=== PATIENT | female | born 1965 | race Asian ===

== ENCOUNTER 2021-07-12 10:09 | Outpatient (REF) | payer OTHER, SELFPAY ==
--- NOTE | ~2021-07-12 | US_ITS ---
EXAMINATION: MM DIAGNOSTIC DIGITAL BREAST TOMOSYNTHESIS, BILATERAL US DIAGNOSTIC ULTRASOUND BREAST, RIGHT CLINICAL INFORMATION: 56-year-old with palpable concern posterior outer right breast. Prior mammography 2015 performed in the [facility] and unavailable. Prior history benign right breast surgery medial side in [facility]. The lifetime risk of breast cancer based on the Tyrer-Cuzick Model is 7%. COMPARISON: None. TECHNIQUE: Digital breast tomosynthesis is performed in both the craniocaudal and mediolateral oblique views along with computer-aided detection (CAD). Synthesized 2D images are generated from the tomosynthesis. Additional views are obtained: Left CC, spot right CC, spot right MLO. Ultrasound right breast is targeted to the upper and outer quadrant and right axilla. Grayscale imaging and color Doppler are performed without and with harmonics. FINDINGS: There are scattered areas of fibroglandular density (ACR BI-RADS breast composition Category b). There is fine fibronodular parenchymal pattern with scattered small bilateral smooth nodularity on tomography. Left breast shows no significant mass and no architectural abnormality. Neither breast shows abnormal calcifications. The bilateral axilla and skin contours are unremarkable. Right breast has smooth oval mass mid upper outer quadrant measuring approximately 1.2 x 0.8 x 1.0 cm. In addition, there is a spiculated lesion posterior 9:00 position measuring just under 1 cm. Ultrasound right breast demonstrates suspicious irregular hypoechoic mass 9:00 position 6 cm from nipple measuring approximately 1.0 x 0.9 cm. There is scant posterior shadowing. Additional imaging right axilla demonstrates no lymphadenopathy. Ultrasound right breast also demonstrates a simple cyst 10:00 position 6 cm from nipple measuring 1.2 x 0.9 x 0.6 cm with a small adjacent satellite cyst measuring under 5 mm. Results are discussed with the patient at time of visit. Ultrasound-guided core biopsy of the irregular hypoechoic mass 9:00 position is recommended. Results and recommendation called to medical transcriber (Jenn) for DALTON Colbert on 07/12/2021 US/US breast RT limited IMPRESSION: Right: -Suspicious spiculated lesion hypoechoic on ultrasound 9:00 position. -Incidental simple cysts upper outer quadrant. -No adenopathy. Left: -No mammographic evidence of malignancy. ASSESSMENT: BI-RADS 4: Suspicious (subcategory 4C: High suspicion for malignancy) RECOMMENDATION: Ultrasound-guided core biopsy right breast mass. This patient's information was entered into a reminder system with a target due date for their next mammogram.
== END 2021-07-12 10:10 | disposition home or self-care (01) ==
LOC: HO.MAMMO 10:09
PROVIDERS: Visit Provider Emergency Medicine
DX: N63.13 Unspecified lump in the right breast, lower outer quadrant (principal)
CPT/HCPCS: 76642; 77062; 77066

== ENCOUNTER 2021-07-20 09:48 | Outpatient (REF) | payer OTHER, SELFPAY ==
--- NOTE | ~2021-07-20 | MM_ITS ---
EXAMINATION: ULTRASOUND GUIDED CORE BIOPSY BREAST, RIGHT POST PROCEDURE DIGITAL MAMMOGRAM, RIGHT CLINICAL INFORMATION: Suspicious spiculated lesion posterior 9:00 right breast. COMPARISON: Mammography 07/12/2021, targeted right breast ultrasound 07/12/2021. FINDINGS: Proper informed consent is obtained from the patient after discussion of the procedure, potential risks and complications, and alternatives. Patient was given an opportunity for questions. The patient appeared to understand. The patient consented to the procedure and signed the consent form. GUIDANCE: Ultrasound-guided; aseptic technique. LESION: Irregular 1 cm hypoechoic mass 9:00 position. APPROACH: Lateral medial. ANESTHESIA: 15 mL carbonated 1% lidocaine. DERMATOTOMY: Single skin azra dermatotomy performed. NEEDLE: 14-gauge Achieve core biopsy device with 13.5-gauge co-axial guide needle. CORES: 5. CLIP: HydroMARK; shape: butterfly. POST PROCEDURE UNILATERAL DIGITAL MAMMOGRAM: The post biopsy mammogram is performed in separate room using separate digital mammography equipment from the biopsy procedure. CC and ML views are obtained. There are scattered areas of fibroglandular density (breast composition category: b). The clip marker is in position corresponding to recent mammographic finding. There is some increased attenuation in the breast corresponding to combination of small hematoma in density from anesthesia. Home instructions reviewed with the patient. Final pathology results are pending. MM/MM diagnostic mammo unilat RT IMPRESSION: 1. Status post ultrasound-guided core biopsy right breast. 2. Clip placed: HydroMARK; shape: butterfly. 3. Pathology pending. An addendum report will be issued.
[2021-07-20] MEDS: Lidocaine HCl 1 % 20 ML VIAL 15 ML SUBCUT (11:17)
[2021-07-20] MEDS: Sodium Bicarbonate 8.4% 50 MEQ/50 ML VIAL SUBCUT (11:18)
== END 2021-07-20 09:49 | disposition home or self-care (01) ==
LOC: HO.MAMMO 09:48
PROVIDERS: PCP Internal Medicine; Visit Provider Emergency Medicine
DX: N63.15 Unspecified lump in the right breast, overlapping quadrants (principal)
CPT/HCPCS: 19083; 77062; 77065; 88305; 88342; 88360; 99202

== ENCOUNTER → 2021-07-27 10:01 | Outpatient (BNVA) | payer OTHER, SELFPAY | PROVIDERS: PCP Internal Medicine; Referring Provider Internal Medicine; Visit Provider Surgery | DX: C50.811 Malignant neoplasm of overlapping sites of right female breast (principal) | CPT/HCPCS: 99212 ==

== ENCOUNTER 2021-07-30 09:47 | Emergency (ER) | payer OTHER, SELFPAY ==
[2021-07-30 10:13] VITALS: BP 156/91; PULSE 91; RESP 18; TEMP 36.8; O2SAT 97
[2021-07-30 11:08] VITALS: BP 156/91; PULSE 91; RESP 18; TEMP 36.8; O2SAT 97; BMI 23.8
--- NOTE | 2021-07-30 11:55 | ED.GENADULT ---
HPI - General Adult General Chief complaint: General Medical Stated complaint: breast pain Time Seen by Provider: 07/30/21 11:25 History of Present Illness HPI narrative: Patient complains of right breast pain She was diagnosed last week with a cancer of the right breast and was seen by [facility] and informed of this diagnosis They plan to go to [facility] treatment After the biopsy there is increased pain and she feels like the mass has enlarged but she denies fever discharge redness Related Data Home Medications Medication Instructions Recorded Confirmed budesonide-formoterol HFA 160 1 puff INHALATION BID 07/20/21 07/20/21 mcg-4.5 mcg/actuation aerosol inhaler (Symbicort) nitrofurantoin macrocrystal 100 mg 100 mg PO BID 07/20/21 07/20/21 capsule Previous Rx's Medication Instructions Recorded acetaminophen 500 mg tablet 1,000 mg PO QID PRN #30 tab 07/30/21 ibuprofen 600 mg tablet 600 mg PO Q6H PRN #20 tab 07/30/21 oxycodone 5 mg tablet 5 mg PO Q6H PRN #20 tab 07/30/21 Allergies Allergy/AdvReac Type Severity Reaction Status Date / Time No Known Allergies Allergy Verified 07/27/21 10:10 Review of Systems Review of Systems: Positive for right breast pain and mass Negative no fever no chills no dizziness or weakness no headache no neck pain no shortness of breath no abdominal pain no nausea or vomiting Yes all other systems are reviewed and are negative PMFSH Past Medical History Source: nursing notes reviewed Medical History Invasive ductal carcinoma of breast Mass of right breast on mammogram Uses nebulizer and inhaler at home Social History Social History Advance Directives: No Advance Directives Information Provided: Yes Physical Exam ED Vital Signs: Vital Signs - 24 hr 07/30/21 10:13 07/30/21 11:08 Temperature 98.2 F 98.2 F Pulse Rate 91 91 Respiratory Rate 18 18 Blood Pressure 156/91 H 156/91 H Pulse Oximetry 97 97 BMI result Body Mass Index 23.8 General appearance is no acute distress , and cooperative Head is normocephalic atraumatic Neck is supple Respiratory no distress Breast exam the right breast had a tender hard mass on the right outer aspect of the breast, there was no redness no warmth no discharge no wound no evidence of abscess no evidence of cellulitis extremities full range of motion x4 Skin no rash Course Course Course Narrative: Case was discussed with Dr. Calvert surgeon who had seen her in clinic after biopsy, he was in the ER and he actually saw the patient her year and reassured her there was no infection, it is likely a hematoma which he said is common after biopsy and the patient plans to follow at [facility] but Dr. Ford is media clear that until that is established she is very welcome as is patient any will see her next week Discharge Plan Discharge Clinical Impression: Invasive ductal carcinoma of breast, Breast pain, right Patient Disposition: Home, Self-Care Additional Instructions: Follow closely with Dr. Calvert is and [facility] to form a plan of treatment At this time there is no sign of an abscess or skin infection I spoke with Dr. Lin issue said likely the pain and enlargement of the mass are from hematoma formation after the biopsy Follow with Dr. Calvert in his office Return any time for any worse condition or concern Use pain medication as needed and apply warm compresses Prescriptions: New oxycodone 5 mg tablet 5 mg PO Q6H PRN (Reason: pain) Qty: 20 0RF Rx Instructions: Narcotic may cause drowsiness, no driving for 6 hours after taking acetaminophen 500 mg tablet 1,000 mg PO QID PRN (Reason: pain) Qty: 30 0RF ibuprofen 600 mg tablet 600 mg PO Q6H PRN (Reason: pain) Qty: 20 0RF No Action nitrofurantoin macrocrystal 100 mg capsule 100 mg PO BID 0RF Rx Instructions: must administer with a meal/food budesonide-formoterol [Symbicort] 160-4.5 mcg/actuation HFA aerosol inhaler 1 puff inhalation BID 0RF Interventions: ED Discharge Assessment Last Done: 07/30/21 12:09 Discharge Date/Time: 07/30/21 12:10
== END 2021-07-30 12:10 | disposition home or self-care (01) ==
PROVIDERS: Emergency Provider Emergency Medicine; PCP Internal Medicine
DX: N64.4 Mastodynia (principal); C50.911 Malignant neoplasm of unspecified site of right female breast; Z79.899 Other long term (current) drug therapy
CPT/HCPCS: 99281; 99283

== ENCOUNTER → 2021-11-29 15:41 | Outpatient (BNVA) | payer MEDICARE, OTHER, SELFPAY | PROVIDERS: PCP Internal Medicine; Referring Provider Internal Medicine; Visit Provider Nurse Practitioner Family | DX: Z12.11 Encounter for screening for malignant neoplasm of colon (principal) | CPT/HCPCS: 99202 ==

== ENCOUNTER 2021-12-15 14:39 | Emergency (ER) | payer MEDICARE, OTHER, SELFPAY ==
--- NOTE | ~2021-12-15 | XR_ITS ---
EXAMINATION: XR CHEST CLINICAL INFORMATION: Cough COMPARISON: None TECHNIQUE: Frontal view of the chest was obtained. FINDINGS: The cardiac silhouette does not appear enlarged. There is volume loss to the upper lobes and bilateral upper lobe scarring, bronchial wall thickening and bronchiectasis, left greater than right. This may represent old infection, including old TB. Differential would include ankylosing spondylitis, sarcoid and pneumoconiosis. The lungs are otherwise clear. There is no pleural effusion or pneumothorax. There is curvature of the lower thoracic and upper lumbar spine to the left.. XR/XR chest 1V IMPRESSION: Bilateral upper lobe volume loss, scarring, bronchiectasis and bronchial wall thickening. This probably represents old infection, including possible TB. Clinical correlation recommended. Comparison with old outside exams would be helpful.
[2021-12-15 16:07] VITALS: BP 168/111; PULSE 80; RESP 18; TEMP 36.6; O2SAT 98; BMI 25.2
--- NOTE | 2021-12-15 16:12 | ECG_ITS ---
Test Reason : HYPERTENSION Blood Pressure : / mmHG Vent. Rate : 087 BPM Atrial Rate : 087 BPM P-R Int : 184 ms QRS Dur : 092 ms QT Int : 380 ms P-R-T Axes : 057 006 074 degrees QTc Int : 457 ms Normal sinus rhythm Possible Left atrial enlargement RSR' or QR pattern in V1 suggests right ventricular conduction delay Borderline ECG No previous ECGs available Referred By: Generic ED Physician Electronically Signed By:EMMANUELLE MARIE MD
--- NOTE | 2021-12-15 16:16 | PC.NURSE ---
charge notified of pts medical history
[2021-12-15 16:25] LABS: MANUAL DIFF FLAG NO
[2021-12-15 16:30] LABS: Basophils Absolute Auto 0.1 X10*3/uL (0.0-0.2); Basophils Percent Auto 0.8 % (0-2); Eosinophils Absolute Auto 0.9 X10*3/uL (0.0-0.4); Eosinophils Percent Auto 13.9 % (0-4); Hematocrit 43.7 % (37.0-47.0); Hemoglobin 14.4 g/dl (12.0-16.0); Imm Gran Abs Auto 0.02 X10*3/uL (0.00-0.03); Imm Gran Pct Auto 0.3 % (0.0-0.4); Lymphocytes Absolute Auto 1.5 X10*3/uL (1.2-4.9); Mean Corpuscular Hemoglobin 28.3 pg (27.0-33.0); Mean Corpuscular Volume 85.9 fL (80.0-98.0); Mean Platelet Volume 9.7 fL (9.4-12.3); Platelet Count 191 X10*3/uL (160-400); Red Blood Count 5.09 X10*6/uL (4.20-5.50); Red Cell Distribution Width 11.8 % (11.0-16.0); White Blood Count 6.4 X10*3/uL (4.8-10.8)
[2021-12-15 16:42] LABS: COVID-19 Test Negative (Negative)
[2021-12-15 16:44] LABS: Anion Gap 17 (12-20); Blood Urea Nitrogen 12 mg/dL (9-16); Calcium 9.3 mg/dL (8.4-10.2); Carbon Dioxide 24 mmol/L (22-29); Chloride 102 mmol/L (96-108); Creatinine Clr Calc Pharmacy 84.7; Estimated Glomerular Filt Rate > 60; Glucose Random 83 mg/dL (60-115); Sodium 139 mmol/L (135-145)
[2021-12-15 16:50] LABS: Troponin-I High Sensitivity < 3.5 ng/L (<3.5-17.0)
== END 2021-12-15 20:10 | disposition left against medical advice (07) ==
PROVIDERS: Emergency Provider Emergency Medicine; PCP Internal Medicine
DX: R04.2 Hemoptysis (principal); R05.9 Cough, unspecified; I10 Essential (primary) hypertension; Z20.822 Contact with and (suspected) exposure to COVID-19; Z79.899 Other long term (current) drug therapy
CPT/HCPCS: 36415; 71045; 80048; 84484; 85025; 87635; 93005; 99283; 99284

== ENCOUNTER → 2022-01-03 09:06 | Outpatient (BNVA) | payer OTHER, SELFPAY | PROVIDERS: PCP Internal Medicine; Visit Provider Internal Medicine Pulmonary Disease | DX: R93.89 Abnormal findings on diagnostic imaging of other specified body structures (principal); R04.2 Hemoptysis | CPT/HCPCS: 99202 ==

== ENCOUNTER 2022-01-22 10:28 | Outpatient (REF) | payer MEDICARE, SELFPAY ==
[2022-01-22 12:50] LABS: Blood Urea Nitrogen 14 mg/dL (9-16); Estimated Glomerular Filt Rate > 60
[2022-01-24 19:21] LABS: TS Negative Control Passed; TS Panel A 0; TS Panel B 0; TS Positive Control Passed; TSpotTB Negative (Negative)
== END 2022-01-22 10:29 | disposition home or self-care (01) ==
LOC: HO.LAB 10:28
PROVIDERS: PCP Internal Medicine; Visit Provider Internal Medicine Pulmonary Disease
DX: Z11.1 Encounter for screening for respiratory tuberculosis (principal); R93.89 Abnormal findings on diagnostic imaging of other specified body structures
CPT/HCPCS: 36415; 82565; 84520; 86481

== ENCOUNTER 2022-01-30 09:44 | Outpatient (REF) | payer OTHER, SELFPAY ==
--- NOTE | ~2022-01-30 | CT_ITS ---
EXAMINATION: CT CHEST WITH CONTRAST CLINICAL INFORMATION: Abnormal findings on chest x-ray. COMPARISON: Chest x-ray 12/15/2021. TECHNIQUE: Multidetector volumetric CT imaging of the chest was obtained after the administration of 50 mL of Omnipaque 350 intravenous contrast without immediate adverse reactions. Axial MIP volume rendering provided. Sagittal and coronal reformatted images were obtained. This CT examination was performed using dose optimization techniques as appropriate, variously including the following: *Automated exposure control *Adjustment of mA and/or kV according to patient size (this includes techniques or standardized protocols for targeted exams where dose is matched to indication/reason for exam; i.e. extremities or head) *Use of iterative reconstruction technique DLP: 122 mGy-cm FINDINGS: GUNNER'S MATE M: Hyperinflated lungs with increased bilateral upper lobe scarring and pleural thickening. LUNGS: The lungs are hyperinflated with extensive bilateral pleural thickening with calcification and bilateral apical scarring as well as moderate parenchymal cystic changes in the left upper lobe. There is a 4 mm nodule in right upper lobe, axial image 78/6 with several small nodular changes in the right upper lobe, axial image 53/10. There are several punctate calcifications in both upper lobes, greater on the left. There is a 5 mm calcified nodule in the right upper lobe, axial image 96/6. There is a 2 mm nodule in the left upper lobe posteriorly, axial image 100/ 10. There is a parenchymal opacity in the right upper lobe anterior segment, image 66/10-75/10 and subcentimeter nodules in the left lower lobe, axial image 48/4. Reticular nodular changes are also seen in left lower lobe posterior basal segment. MEDIASTINUM: The thyroid lobes are symmetric and normal. The central trachea and the bronchi are widely patent. Heart size and the great vessels are normal caliber. There are no coronary artery calcifications present. No abnormal size mediastinal or hilar lymph nodes seen. PLEURA: There is no pleural effusion. No pleural mass or thickening. AXILLA: There are right axillary lorena likely from lymph node dissection. No abnormal size lymph nodes seen. 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 It measures 1.4 x 1.4 cm on sagittal image 14/9. There is a dense, deep right breast soft tissue density with scattered punctate calcifications, old surgical scar. No nodular skin thickening seen. UPPER ABDOMEN: Visualized liver, spleen, pancreas and bilateral adrenal glands are unremarkable. OSSEOUS STRUCTURES: No gross lytic or sclerotic process seen. CT/CT chest w IV con IMPRESSION: 1. Hyperinflated lungs with extensive bilateral upper lobe scarring, pleural thickening with calcification. There are multiple calcified and noncalcified pulmonary nodules as described above. 2. No abnormal mediastinal or axillary lymphadenopathy seen. 3. 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 4. Post-surgical changes in the right breast with a soft tissue density, with punctate calcifications, likely old scar. Correlate with clinical exam. 5. No abnormal mediastinal or axillary lymph nodes seen. 6. No pleural effusion or pericardial effusion. No bony abnormality seen. No lytic or sclerotic process seen in the visualized bones. 7. The recommendations do not apply to lung cancer screening, patients with immunosuppression or patients with known primary cancer. Fleischner guidelines were followed.
[2022-01-30] MEDS: iohexoL 350 MG/ML 100 ML INFUS..BTL IV (10:34)
== END 2022-01-30 09:45 | disposition home or self-care (01) ==
LOC: HO.CT 09:44
PROVIDERS: PCP Internal Medicine; Visit Provider Internal Medicine Pulmonary Disease
DX: R93.89 Abnormal findings on diagnostic imaging of other specified body structures (principal)
CPT/HCPCS: 71260; Q9967

== ENCOUNTER 2022-02-06 07:42 | Outpatient (REF) | payer OTHER, SELFPAY | END 2022-02-06 07:43 | disposition home or self-care (01) | LOC: HO.RESP 07:42 | PROVIDERS: PCP Internal Medicine; Visit Provider Internal Medicine Pulmonary Disease | DX: Z13.89 Encounter for screening for other disorder (principal) ==

== ENCOUNTER 2022-02-20 10:18 | Outpatient (REF) | payer OTHER, SELFPAY ==
--- NOTE | ~2022-02-20 | CT_ITS ---
EXAMINATION: CT ANGIOGRAM CHEST CLINICAL INFORMATION: Hemoptysis COMPARISON: Chest CT on 01/30/2022 TECHNIQUE: Multiple axial images were obtained through the chest after the administration of 70 mL of Omnipaque 350 intravenous contrast. Extensive vascular post-processing including two-dimensional and three-dimensional reformatted images were created and reviewed on an independent workstation. This CT examination was performed using dose optimization techniques as appropriate, variously including the following: *Automated exposure control *Adjustment of mA and/or kV according to patient size (this includes techniques or standardized protocols for targeted exams where dose is matched to indication/reason for exam; i.e. extremities or head) *Use of iterative reconstruction technique DLP: 130 mGy-cm FINDINGS: Heart/Aorta: The heart is globally normal in size. The coronary arteries arise from the expected coronary sinuses; there is no anomaly of coronary arterial origin. The thoracic aorta is normal in course and caliber. There is no evidence of aortic dissection, intramural hematoma, or atherosclerotic penetrating ulcer. Aortic arch anatomy is conventional. Other Cardiovascular: The main pulmonary artery is normal in caliber. The well opacified portions of the pulmonary arterial system are patent. There is no pericardial effusion or pericardial thickening. Mediastinum/Jonelle: There are no pathologically enlarged mediastinal or hilar lymph nodes. Pleura: The pleural surfaces are normal bilaterally. There is no pleural effusion. There is no pneumothorax. Lungs: Volume loss in the left. There is severe bronchiectasis of the posterior left upper lobe and to a lesser extent the posterior right upper lobe. There are additional scattered bilateral areas of tree-in-bud opacities, groundglass attenuation, and reticulation. There is diffuse bilateral mild emphysematous changes. Airways: The central airways are patent. The peripheral airways are normal. There is no bronchiectasis. Upper Abdomen: The incompletely imaged upper abdomen is unremarkable. Musculoskeletal: There is no aggressive osseous lesion. The structures of the chest wall, including the bones, are normal for age. CT/CT angio chest aorta IMPRESSION: 1. Severe bronchiectasis of the posterior left upper lobe and to a lesser extent the posterior right upper lobe. 2. Scattered bilateral areas of tree-in-bud opacities, groundglass attenuation, and reticulation. Hemoptysis is likely secondary to inflammatory changes. Consider bronchoscopy if not previously performed for further evaluation.
[2022-02-20] MEDS: iohexoL 350 MG/ML 100 ML INFUS..BTL IV (10:57)
== END 2022-02-20 10:19 | disposition home or self-care (01) ==
LOC: HO.CT 10:18
PROVIDERS: PCP Internal Medicine; Visit Provider Internal Medicine Pulmonary Disease
DX: R04.2 Hemoptysis (principal); R93.89 Abnormal findings on diagnostic imaging of other specified body structures
CPT/HCPCS: 71275; Q9967

== ENCOUNTER 2022-03-13 11:09 | Outpatient (REF) | payer OTHER, SELFPAY ==
[2022-03-14 08:14] LABS: ~Hepatitis B Surface Antibody NONREACTIVE (Nonreactive)
[2022-03-15 04:17] LABS: Rubella IgG Antibody 4.47 Index
[2022-03-15 04:23] LABS: Rubeola IgG (Measles) >300.00 AU/mL
== END 2022-03-13 11:10 | disposition home or self-care (01) ==
LOC: HO.LAB 11:09
PROVIDERS: PCP Physician Assistant; Visit Provider Internal Medicine Infectious Disease
DX: Z00.00 Encounter for general adult medical examination without abnormal findings (principal)
CPT/HCPCS: 36415; 86706; 86735; 86762; 86765; 86787

== ENCOUNTER 2022-03-27 10:28 | Outpatient (REF) | payer OTHER, SELFPAY ==
[2022-03-27 11:29] LABS: MANUAL DIFF FLAG NO
[2022-03-27 12:00] LABS: Basophils Absolute Auto 0.1 X10*3/uL (0.0-0.2); Basophils Percent Auto 0.9 % (0-2); Eosinophils Absolute Auto 0.7 X10*3/uL (0.0-0.4); Hemoglobin 14.4 g/dl (12.0-16.0); Imm Gran Abs Auto 0.02 X10*3/uL (0.00-0.03); Imm Gran Pct Auto 0.3 % (0.0-0.4); Lymphocytes Absolute Auto 2.1 X10*3/uL (1.2-4.9); Lymphocytes Percent Auto 30.8 % (20-40); Mean Corpuscular HGB Conc 32.7 g/dl (31.0-35.0); Mean Corpuscular Hemoglobin 28.6 pg (27.0-33.0); Mean Corpuscular Volume 87.5 fL (80.0-98.0); Mean Platelet Volume 10.1 fL (9.4-12.3); Monocytes Absolute Auto 0.6 X10*3/uL (0.1-1.2); Monocytes Percent Auto 8.5 % (2-11); Neutrophils Absolute Auto 3.3 x10*3/uL (2.0-8.3); Neutrophils Percent Auto 49.5 % (45-73); Platelet Count 241 X10*3/uL (160-400); Red Blood Count 5.03 X10*6/uL (4.20-5.50); White Blood Count 6.7 X10*3/uL (4.8-10.8)
== END 2022-03-27 10:29 | disposition home or self-care (01) ==
LOC: HO.LAB 10:28
PROVIDERS: PCP Physician Assistant; Visit Provider Internal Medicine Pulmonary Disease
DX: Z91.09 Other allergy status, other than to drugs and biological substances (principal); R93.89 Abnormal findings on diagnostic imaging of other specified body structures; J47.9 Bronchiectasis, uncomplicated; Z86.11 Personal history of tuberculosis
CPT/HCPCS: 36415; 82785; 85025; 86003

== ENCOUNTER → 2022-04-19 11:00 | Outpatient (BNVA) | payer OTHER, SELFPAY | PROVIDERS: PCP Registered Nurse; Visit Provider Internal Medicine Pulmonary Disease | DX: Z91.09 Other allergy status, other than to drugs and biological substances (principal) ==

== ENCOUNTER 2022-05-17 10:55 | Outpatient (REF) | payer OTHER, SELFPAY | END 2022-05-17 10:56 | disposition home or self-care (01) | LOC: HO.MDS 10:55 | PROVIDERS: Visit Provider Internal Medicine Pulmonary Disease | DX: J45.50 Severe persistent asthma, uncomplicated (principal); J82.83 Eosinophilic asthma | CPT/HCPCS: 96372; J2182 ==

== ENCOUNTER 2022-06-14 09:50 | Outpatient (REF) | payer OTHER, SELFPAY | END 2022-06-14 09:51 | disposition home or self-care (01) | LOC: HO.MDS 09:50 | PROVIDERS: Visit Provider Internal Medicine Pulmonary Disease | DX: J45.50 Severe persistent asthma, uncomplicated (principal); J82.83 Eosinophilic asthma | CPT/HCPCS: 96372; J2182 ==

== ENCOUNTER → 2022-07-10 10:55 | Outpatient (BNVA) | payer OTHER, SELFPAY | PROVIDERS: PCP Registered Nurse; Visit Provider Internal Medicine Pulmonary Disease ==

== ENCOUNTER 2022-07-12 09:54 | Outpatient (REF) | payer OTHER, SELFPAY | END 2022-07-12 09:55 | disposition home or self-care (01) | LOC: HO.MDS 09:54 | PROVIDERS: Visit Provider Internal Medicine Pulmonary Disease | DX: J45.50 Severe persistent asthma, uncomplicated (principal) | CPT/HCPCS: 96372; J2182 ==

== ENCOUNTER 2022-12-26 16:19 | Outpatient (REF) | payer OTHER, SELFPAY ==
[2022-12-27 16:29] LABS: H Pylori Breath Test Negative (Negative)
== END 2022-12-26 16:20 | disposition home or self-care (01) ==
LOC: HO.LNP 16:19
PROVIDERS: Visit Provider Registered Nurse
DX: R10.9 Unspecified abdominal pain (principal)
CPT/HCPCS: 83013

== ENCOUNTER 2023-01-28 16:28 | Outpatient (REF) | payer OTHER, SELFPAY ==
[2023-02-01 03:28] LABS: HPV mRNA E6/E7 rflx Not Detected (Not Detected)
== END 2023-01-28 16:29 | disposition home or self-care (01) ==
LOC: HO.HHCLNP 16:28
PROVIDERS: Visit Provider Advanced Practice Midwife
DX: Z12.4 Encounter for screening for malignant neoplasm of cervix (principal); Z11.51 Encounter for screening for human papillomavirus (HPV)
CPT/HCPCS: 87624; 88142

== ENCOUNTER 2023-01-29 13:48 | Outpatient (AMB) | payer OTHER, SELFPAY ==
--- NOTE | 2023-01-29 13:49 | MHC.OFFVIS ---
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 After the last office visit patient symptoms were well controlled on Nucala, Symbicort, and albuterol MDI/nebs. However, in September of 2022 her co-pay for Nucala became prohibitive. Patient did obtain supplemental insurance, however there is a 6 months waiting period, so she has not had Nucala since September of 2022 with worsening symptom control. [facility] Medical History (Updated 04/19/22 @ 11:38 by Alberto Aj MD) Hx of breast cancer Invasive ductal carcinoma of breast Uses nebulizer and inhaler at home Mass of right breast on mammogram Social History Household Members: Significant Other Alcohol intake: never Patient Tobacco Use Status: Never used Tobacco Tobacco use type: Cigarette Female Reproductive History Menstrual Age of Menarche: 18 Review of Systems Const Denies daytime sleepiness, Denies excessive sweating, Denies fatigue, Denies fever(s), Denies lethargy, Denies malaise, Denies night sweats, Denies snoring and Denies weight loss Eyes Denies blurry vision and Denies itchy eyes ENT Denies nasal congestion, Denies post nasal drip, Denies sinus pain, Denies sinus pressure and Denies other ( Thrush) Card Denies chest pain, Denies pedal edema, Denies dyspnea, Denies orthopnea and Denies paroxysmal nocturnal dyspnea Resp Reports cough, Denies hemoptysis, Denies excessive phlegm production, Denies dyspnea, Denies snoring and Denies wheezing GI Denies abdominal pain and Denies heartburn Musc Denies myalgias, Denies arthralgias and Denies joint swelling Skin/Breast Denies rash Neuro Denies memory loss and Denies seizure-like activity Psych Denies abnormal sleep pattern, Denies anxiety and Denies memory loss Endo Denies excessive sweating, Denies fatigue and Denies heat intolerance Chao/Lymph Denies easy bruising Aller/Immun Denies itchy eyes, Denies seasonal rhinorrhea and Denies wheezing Physical Exam Vital Signs: Last Vital Signs Pulse 92 01/29/23 13:50 BP 142/79 H 01/29/23 13:50 Pulse Ox 98 01/29/23 13:50 Oxygen Delivery Method Room Air 01/29/23 13:50 BMI result Body Mass Index 27.0 Const General: no acute distress and alert Nutritional Appearance: not obese Orientation/consciousness: Other orientation findings ( oriented) HEENT Head: Yes atraumatic Eyes General: appearance normal, both eyes and all related structures Sclerae: sclerae normal EOM: EOMs intact bilaterally Neck Neck: Yes supple Lymphatic: no lymphadenopathy noted Resp Effort & Inspection: normal respiratory effort and no use of accessory muscles Auscultation: clear to auscultation bilaterally Cardio Rate: regular rate Rhythm: regular rhythm Heart sounds: no gallops, no murmurs and no rubs Skin General skin exam: other ( warm) Extrem General: No clubbing, No cyanosis and No edema Assessment & Plan Assessment & Plan (1) Bronchiectasis: Code(s): J47.9 - Bronchiectasis, uncomplicated Plan: Mild recent exacerbation symptomatic with cough productive of sputum. Will treat with a course of Levaquin. (2) Environmental allergies: Code(s): Z91.09 - Other allergy status, other than to drugs and biological substances Plan: Suboptimally controlled as patient is off Nucala, expect to improve after restarting went supplemental insurance starts to cover it in March of 2023. (3) Reactive airway disease: Code(s): J45.909 - Unspecified asthma, uncomplicated Plan: Baseline controlled on Symbicort and albuterol MDI. Continue current regimen. Medications: New albuterol sulfate 2.5 mg (3 mL) inhalation Q4H PRN 180 mL 6RF shortness of breath or wheezing 30 days levofloxacin 750 mg PO DAILY 7 tabs 0RF Coding Level of Care Code Est Pt Level 4 (05189) Diagnoses Bronchiectasis J47.9 Environmental allergies Z91.09 Reactive airway disease J45.909
[2023-01-29 13:50] VITALS: BP 142/79; PULSE 92; O2SAT 98; BMI 27.0
== END 2023-01-29 14:11 | disposition home or self-care (01) ==
PROVIDERS: PCP Registered Nurse; Visit Provider Internal Medicine Pulmonary Disease
DX: J47.9 Bronchiectasis, uncomplicated (principal); Z91.09 Other allergy status, other than to drugs and biological substances; J45.909 Unspecified asthma, uncomplicated
CPT/HCPCS: 99214

== ENCOUNTER → 2023-01-29 13:48 | Outpatient (BNVA) | payer OTHER, SELFPAY | PROVIDERS: PCP Registered Nurse; Visit Provider Internal Medicine Pulmonary Disease | DX: J47.9 Bronchiectasis, uncomplicated (principal); J45.909 Unspecified asthma, uncomplicated; Z91.09 Other allergy status, other than to drugs and biological substances | CPT/HCPCS: 99212 ==

== ENCOUNTER 2023-03-19 10:48 | Outpatient (REF) | payer OTHER, SELFPAY | END 2023-03-19 10:49 | disposition home or self-care (01) | LOC: HO.MDS 10:48 | PROVIDERS: Visit Provider Internal Medicine Pulmonary Disease | DX: J45.50 Severe persistent asthma, uncomplicated (principal) | CPT/HCPCS: 96372 ==

== ENCOUNTER 2023-03-28 10:04 | Outpatient (REF) | payer OTHER, SELFPAY ==
--- NOTE | ~2023-03-28 | CT_ITS ---
EXAMINATION: CT CHEST WITHOUT CONTRAST CLINICAL INFORMATION: Follow-up bronchiectasis and tree-in-bud appearance micronodules. COMPARISON: Chest CTA from 02/20/[address] from 03/01/2022 TECHNIQUE: Multidetector volumetric CT imaging of the chest was done. Axial MIP volume rendering provided. Sagittal and coronal reformatted images were obtained. This CT examination was performed using dose optimization techniques as appropriate, variously including the following: *Automated exposure control *Adjustment of mA and/or kV according to patient size (this includes techniques or standardized protocols for targeted exams where dose is matched to indication/reason for exam; i.e. extremities or head) *Use of iterative reconstruction technique DLP: 174 mGy-cm FINDINGS: CRYPTOLOGIC SUPPORT SPECIALIST: There is bilateral apical scarring hyperinflated lungs LUNGS: There is no interval change in appearance of significant volume loss on the left with extensive branching bronchiectasis in the upper lower lobe, completely replacing normal parenchyma of the left upper lobe. There is hyperinflation of the left lower lobe with herniation in the expected location of the left upper lobe and cephalad migration of left upper lobe bronchus which is not obstructed. Right lung revealed similar expansion of the right lower lobe and right middle lobe and linear bronchiectasis of lesser degree in the right upper lobe without endobronchial lesions and cephalad migration of the right upper lobe bronchus. There are punctate calcifications seen through the right and left upper lobes. There are no parenchymal consolidations or measurable nodules but there are a few small ill-defined subpleural densities seen on the right. MEDIASTINUM: Thyroid gland revealed no obvious nodule. There is no mediastinal or hilar lymphadenopathy seen. Thoracic aorta is not dilated. There is no pericardial effusion. CORONARY ARTERY CALCIFICATION: None visualized on this study. PLEURA: There is no pleural effusion. No pleural mass or thickening. AXILLA: No lymphadenopathy. There are postsurgical changes in the right breast UPPER ABDOMEN: Unremarkable. OSSEOUS STRUCTURES: There is mild dextroscoliosis and straightening of thoracic spine but no lytic or blastic lesions seen. CT/CT chest wo IV con IMPRESSION: 1. No interval change in appearance of extensive bronchiectasis in the left upper lobe and to a lesser degree in the right lung. Severe COPD. Fleischner guidelines were followed.
== END 2023-03-28 10:05 | disposition home or self-care (01) ==
LOC: HO.CT 10:04
PROVIDERS: PCP Registered Nurse; Visit Provider Internal Medicine Pulmonary Disease
DX: R93.89 Abnormal findings on diagnostic imaging of other specified body structures (principal)
CPT/HCPCS: 71250

== ENCOUNTER 2023-04-16 09:57 | Outpatient (AMB) | payer OTHER, SELFPAY ==
[2023-04-16 10:10] VITALS: BP 140/92; PULSE 99; O2SAT 95; BMI 27.1
--- NOTE | 2023-04-16 10:10 | A.OFFVIS_ITS ---
Intake Vital Signs 04/16/23 10:10 Height 5 ft 5 in Weight 163 lb 2.273 oz BMI 27.1 BP 140/92 H Blood Pressure Location Rt brachial Position Sitting Pulse 99 Pulse Source Doppler Pulse Oximetry (%) 95 Oxygen Delivery Method Room Air Intake Visit Reasons: Cough Allergies No Known Allergies Allergy (Verified 04/16/23 10:13) HPI Cough HPI Details 57-year-old lady, nonsmoker, from [facility], with underlying history of tuberculosis while in high school treated at that time, with reactivation approximately 20 years prior, treated for 6 months at that time, now followed for abnormal CT scan with bronchiectasis and ground-glass opacities, reactive airway disease, and environmental allergies. After the last office visit patient was able to restart on Nucala, however she only had 1 injection. She continues on Symbicort, and albuterol MDI/nebs. She denies any recent exacerbations. Her CT chest demonstrates stable bronchiectasis. [facility] Medical History (Updated 04/19/22 @ 11:38 by Alberto Aj MD) Hx of breast cancer Invasive ductal carcinoma of breast Uses nebulizer and inhaler at home Mass of right breast on mammogram Social History Household Members: Significant Other Alcohol intake: never Patient Tobacco Use Status: Never used Tobacco Tobacco use type: Cigarette Female Reproductive History Menstrual Age of Menarche: 18 Review of Systems Const Denies daytime sleepiness, Denies excessive sweating, Denies fatigue, Denies fever(s), Denies lethargy, Denies malaise, Denies night sweats, Denies snoring and Denies weight loss Eyes Denies blurry vision and Denies itchy eyes ENT Denies nasal congestion, Denies post nasal drip, Denies sinus pain, Denies sinus pressure and Denies other ( Thrush) Card Denies chest pain, Denies pedal edema, Denies dyspnea, Denies orthopnea and Denies paroxysmal nocturnal dyspnea Resp Denies cough, Denies hemoptysis, Denies excessive phlegm production, Denies dyspnea, Denies snoring and Denies wheezing GI Denies abdominal pain and Denies heartburn Musc Denies myalgias, Denies arthralgias and Denies joint swelling Skin/Breast Denies rash Neuro Denies memory loss and Denies seizure-like activity Psych Denies abnormal sleep pattern, Denies anxiety and Denies memory loss Endo Denies excessive sweating, Denies fatigue and Denies heat intolerance Chao/Lymph Denies easy bruising Aller/Immun Denies itchy eyes, Denies seasonal rhinorrhea and Denies wheezing Physical Exam Vital Signs: Last Vital Signs Pulse 99 04/16/23 10:10 BP 140/92 H 04/16/23 10:10 Pulse Ox 95 04/16/23 10:10 Oxygen Delivery Method Room Air 04/16/23 10:10 BMI result Body Mass Index 27.1 Const General: no acute distress and alert Nutritional Appearance: not obese Orientation/consciousness: Other orientation findings ( oriented) HEENT Head: Yes atraumatic Eyes General: appearance normal, both eyes and all related structures Sclerae: sclerae normal EOM: EOMs intact bilaterally Neck Neck: Yes supple Lymphatic: no lymphadenopathy noted Resp Effort & Inspection: normal respiratory effort and no use of accessory muscles Auscultation: clear to auscultation bilaterally Cardio Rate: regular rate Rhythm: regular rhythm Heart sounds: no gallops, no murmurs and no rubs Skin General skin exam: other ( warm) Extrem General: No clubbing, No cyanosis and No edema Assessment & Plan Assessment & Plan (1) Reactive airway disease: Code(s): J45.909 - Unspecified asthma, uncomplicated Plan: Improving control on Nucala. Continue Nucala, Symbicort, and albuterol MDI. (2) Bronchiectasis: Code(s): J47.9 - Bronchiectasis, uncomplicated Plan: Results of CT chest reviewed - stable findings. No recent exacerbations. Continue to monitor clinically. (3) Environmental allergies: Code(s): Z91.09 - Other allergy status, other than to drugs and biological substances Plan: Slowly improving after restarting on Nucala. Coding Level of Care Code Est Pt Level 4 (51970) Diagnoses Reactive airway disease J45.909 Bronchiectasis J47.9 Environmental allergies Z91.09
== END 2023-04-16 10:34 | disposition home or self-care (01) ==
PROVIDERS: PCP Registered Nurse; Visit Provider Internal Medicine Pulmonary Disease
DX: J45.909 Unspecified asthma, uncomplicated (principal); J47.9 Bronchiectasis, uncomplicated; Z91.09 Other allergy status, other than to drugs and biological substances
CPT/HCPCS: 99214

== ENCOUNTER 2023-04-16 10:36 | Outpatient (REF) | payer OTHER, SELFPAY | END 2023-04-16 10:37 | disposition home or self-care (01) | LOC: HO.MDS 10:36 | PROVIDERS: Visit Provider Internal Medicine Pulmonary Disease | DX: J45.50 Severe persistent asthma, uncomplicated (principal) | CPT/HCPCS: 96372; 99212; J2182 ==

== ENCOUNTER 2023-05-14 10:46 | Outpatient (REF) | payer OTHER, SELFPAY ==
[2023-05-14 10:51] VITALS: BP 162/94; PULSE 100; TEMP 36.8; O2SAT 97; BMI 27.0
[2023-05-14] MEDS: Mepolizumab 100 MG/ML AUTO.INJCT SUBCUT (10:58)
== END 2023-05-14 10:47 | disposition home or self-care (01) ==
LOC: HO.MDS 10:46
PROVIDERS: Visit Provider Internal Medicine Pulmonary Disease
DX: J45.50 Severe persistent asthma, uncomplicated (principal)
CPT/HCPCS: 96372

== ENCOUNTER 2023-05-17 10:16 | Outpatient (REF) | payer OTHER, SELFPAY ==
[2023-05-17 10:28] LABS: MANUAL DIFF FLAG NO
[2023-05-17 10:50] LABS: Basophils Percent Auto 0.6 % (0-2); Eosinophils Absolute Auto 0.1 X10*3/uL (0.0-0.4); Eosinophils Percent Auto 1.1 % (0-4); Hematocrit 42.2 % (37.0-47.0); Hemoglobin 13.9 g/dl (12.0-16.0); Imm Gran Abs Auto 0.03 X10*3/uL (0.00-0.03); Imm Gran Pct Auto 0.5 % (0.0-0.4); Lymphocytes Absolute Auto 2.3 X10*3/uL (1.2-4.9); Mean Corpuscular HGB Conc 32.9 g/dl (31.0-35.0); Mean Corpuscular Volume 87.9 fL (80.0-98.0); Mean Platelet Volume 9.8 fL (9.4-12.3); Monocytes Absolute Auto 0.6 X10*3/uL (0.1-1.2); Monocytes Percent Auto 8.5 % (2-11); Neutrophils Absolute Auto 3.7 x10*3/uL (2.0-8.3); Neutrophils Percent Auto 55.3 % (45-73); Platelet Count 233 X10*3/uL (160-400); Red Cell Distribution Width 12.1 % (11.0-16.0); White Blood Count 6.6 X10*3/uL (4.8-10.8)
[2023-05-17 11:46] LABS: Alanine Aminotransferase 18 U/L (0-31); Albumin Level 4.3 g/dL (3.5-5.0); Alkaline Phosphatase 51 U/L (39-117); Anion Gap 12 (12-20); Aspartate Amino Transferase 20 U/L (5-31); Bilirubin Total 0.5 mg/dL (0.0-1.0); Blood Urea Nitrogen 14 mg/dL (9-16); Calcium 9.3 mg/dL (8.4-10.2); Carbon Dioxide 28 mmol/L (22-29); Chloride 104 mmol/L (96-108); Cholesterol 250 mg/dL (<200); Estimated Glomerular Filt Rate > 60; Glucose Random 110 mg/dL (60-115); HDL Cholesterol 73 mg/dL (>40); LDL Cholesterol Calculated 155 mg/dL (<100); Potassium 3.9 mmol/L (3.3-5.1); Sodium 140 mmol/L (135-145); Total Protein 7.8 g/dL (6.5-8.0); Triglycerides 113 mg/dL (<150)
[2023-05-17 11:51] LABS: TSH reflex Free T4 0.81 uIU/mL (0.32-4.0)
[2023-05-17 13:08] LABS: Creatinine Urine 123.58 mg/dL; Microalbum/Creatinine Ratio Ur 30.7 ug/mg cr (<30)
== END 2023-05-17 10:17 | disposition home or self-care (01) ==
LOC: HO.LAB 10:16
PROVIDERS: PCP Pediatrics; Visit Provider Pediatrics
DX: I10 Essential (primary) hypertension (principal)
CPT/HCPCS: 36415; 80053; 80061; 82043; 82570; 84443; 85025

== ENCOUNTER 2023-06-28 08:48 | Day surgery (SDC) | payer OTHER, SELFPAY ==
[2023-06-26 14:58] VITALS: BMI 27.1
--- NOTE | 2023-06-26 15:40 | HO.ANESPROP2 ---
Documented by User: Chelle Servin NP 06/26/23 15:41 HPI - Anesthesia Eval Consult details Narrative: 58yo F for Colonoscopy PMFSH Active Problems Active Problems: All Active Problems Reactive airway disease (Acute) Bronchiectasis (Acute) Environmental allergies (Acute) Pulmonary nodules (Acute) Abnormal CT scan, chest (Acute) History of treatment for tuberculosis (Acute) Hemoptysis (Acute) Abnormal chest xray (Acute) Uses nebulizer and inhaler at home (Acute) Mass of right breast on mammogram (Acute) Invasive ductal carcinoma of breast (Acute) Past Medical History Medical History Tuberculosis COPD (chronic obstructive pulmonary disease) Asthma HTN (hypertension) Hx of breast cancer Invasive ductal carcinoma of breast Surgical History Surgical History History of lumpectomy of right breast Social History Social History Household Members: Significant Other Alcohol intake: never Patient Tobacco Use Status: Never used Tobacco Use of substances other than those prescribed or required for medical reasons: No Advance Directives: No Advance Directives Information Provided: Yes Meds Allergies Allergy/AdvReac Type Severity Reaction Status Date / Time No Known Allergies Allergy Verified 04/16/23 10:13 Home Medications ?Medication ?Instructions ?Recorded ?Confirmed ?Last Taken ?Type budesonide-formoterol HFA 160 1 puff inhalation BID 07/20/21 06/26/23 Unknown History mcg-4.5 mcg/actuation aerosol inhaler (Symbicort) albuterol sulfate 90 mcg/actuation 1 puff inhalation Q4H PRN 01/03/22 06/26/23 Unknown History aerosol inhaler Shortness Of Breath cetirizine 10 mg tablet 10 mg PO DAILY 01/03/22 06/26/23 Unknown History lisinopril 10 mg tablet 20 mg PO DAILY 01/03/22 06/26/23 Unknown History tamoxifen 20 mg tablet 20 mg PO DAILY 01/03/22 06/26/23 Unknown History Exam Height,Weight and Vital Signs: Height 5 ft 5 in Weight 73.936 kg Assessment and Plan Assessment Anesthesia Assessment: Chart Reviewed Documented by User: Vaishali Pitts MD 06/28/23 10:12 [facility] Past Medical History Medical History Tuberculosis COPD (chronic obstructive pulmonary disease) Asthma HTN (hypertension) Hx of breast cancer Invasive ductal carcinoma of breast Surgical History Surgical History History of lumpectomy of right breast History of Problems with Anesthesia: No Social History Social History Household Members: Significant Other Alcohol intake: never Patient Tobacco Use Status: Never used Tobacco Use of substances other than those prescribed or required for medical reasons: No Advance Directives: No Advance Directives Information Provided: Yes Meds Allergies Allergy/AdvReac Type Severity Reaction Status Date / Time No Known Allergies Allergy Verified 04/16/23 10:13 Home Medications ?Medication ?Instructions ?Recorded ?Confirmed ?Last Taken ?Type budesonide-formoterol HFA 160 1 puff inhalation BID 07/20/21 06/26/23 Unknown History mcg-4.5 mcg/actuation aerosol inhaler (Symbicort) albuterol sulfate 90 mcg/actuation 1 puff inhalation Q4H PRN 01/03/22 06/26/23 Unknown History aerosol inhaler Shortness Of Breath cetirizine 10 mg tablet 10 mg PO DAILY 01/03/22 06/26/23 Unknown History lisinopril 10 mg tablet 20 mg PO DAILY 01/03/22 06/26/23 Unknown History tamoxifen 20 mg tablet 20 mg PO DAILY 01/03/22 06/26/23 Unknown History Exam Airway Mallampati Class: II TM Dist: >3cm Neck ROM: Full Partial: Lower Loose/Missing/Broken Teeth: Yes and Lower Heart: RRR Lungs: CTA Assessment and Plan Assessment Anesthesia Assessment: Anesthesia Plan Discussed Final Anesthetic Review History of Problems with Anesthesia: No NPO: Yes ASA Class: II Final Preanesthetic Review: Meds/Allgs Chart Reviewed, Consent Obtained/Reviewed and Anes Risks/Benef Reviewed Patient Risk: Low Procedure Risk: Low Anesthetic Plan Anesthetic Plan: MAC: Disposition: Standard PACU
[2023-06-28 10:12] VITALS: BP 110/83; PULSE 92; RESP 18; TEMP 36.6; O2SAT 98
[2023-06-28] MEDS: Lactated Ringers 1,000 ML 100 ML IVCONT (10:35)
--- NOTE | 2023-06-28 10:54 | MHC.SHP ---
Pre-Procedural Eval Section A - 24 Hr Update-Section A only Date of Service: 06/28/23 Section B - Complete if H&P > 30 days Chief Complaint: Encounter for screening for malignant neoplasm of Details of Present Illness: see H&P no changes Relevant Family History (Specify if Yes): No Relevant Social History: None Present Medications: see Short Stay Collaborative assessment Medical History: No relevant PMH Allergies: Allergies Allergy/AdvReac Type Severity Reaction Status Date / Time No Known Allergies Allergy Verified 04/16/23 10:13 Review of Systems Sugical H&P ROS: Negative: Constitution, Cardiovascular, Respiratory, Neurological, Psychiatric, Hem-Onc, Allergic/Immunologic, Gastrointestinal, Genitourinary, Musculoskeletal, Integumentary, Endocrine and Eyes/Ears/Nose/Throat Exam Surgical H&P Exam: Normal: HEENT, Normal: Heart, Normal: Lungs, Normal: Extremities, Normal: Abdomen, Normal: Skin and Normal: Neurological Plan Diagnosis/Plan: Unchanged I have reviewed the history and physical and performed a pertinent physical examination on my patient. No changes have occurred unless specified. Time Spent With Patient Time: Total time managing care of this patient today ____ minutes.
[2023-06-28 11:30] VITALS: BP 87/45; PULSE 94; RESP 12; TEMP 36.3; O2SAT 97
[2023-06-28 11:45] VITALS: BP 119/75; PULSE 81; RESP 16; TEMP 36.3; O2SAT 97
--- NOTE | 2023-06-28 11:47 | OP_ITS ---
DATE OF SERVICE: 06/28/2023 SURGEON: Richard Rubio MD INDICATIONS: Colon cancer screening. PREOPERATIVE DIAGNOSIS: POSTOPERATIVE DIAGNOSIS: PROCEDURE PERFORMED: Colonoscopy to the terminal ileum with biopsy. ESTIMATED BLOOD LOSS: COMPLICATIONS: ANESTHESIA: Monitored anesthesia care. ASSISTANTS: SPECIMENS: DESCRIPTION OF PROCEDURE: A history and physical was performed. The risks and benefits of the procedure were explained to the patient and informed consent was obtained. The patient was placed in the left lateral decubitus position. A digital rectal exam was performed and was found to be normal. The Olympus pediatric video colonoscope was introduced into the rectum and advanced to the cecum. The cecum was identified by transillumination, palpation, and identification of ileocecal valve. Examination was performed and the scope was removed. She tolerated the procedure well and was returned to recovery area in stable condition. FINDINGS: The terminal ileum was examined and appeared normal. The visualized colonic mucosa was normal. The quality of prep was good. In the rectum, was a less than 5 mm sessile polyp with biopsy forceps. Retroflexed examination showed internal hemorrhoids. IMPRESSION: Colon polyp. RECOMMENDATION: Follow up the biopsy results. MD JO James/DAVIDL / [id number]
== END 2023-06-28 12:45 | disposition home or self-care (01) ==
PROVIDERS: PCP Pediatrics; Visit Provider Internal Medicine Gastroenterology
PROC: 0DJD8ZZ Inspection of Lower Intestinal Tract, Via Natural or Artificial Opening Endoscopic (ICD-10-PCS; CPT 45378; principal; 2023-06-28 11:40)
DX: Z12.11 Encounter for screening for malignant neoplasm of colon (principal); K62.1 Rectal polyp; K64.8 Other hemorrhoids; K59.00 Constipation, unspecified; R14.3 Flatulence; I10 Essential (primary) hypertension; J44.9 Chronic obstructive pulmonary disease, unspecified; C50.911 Malignant neoplasm of unspecified site of right female breast; Z79.810 Long term (current) use of selective estrogen receptor modulators (SERMs); Z92.3 Personal history of irradiation; Z86.11 Personal history of tuberculosis; Z79.51 Long term (current) use of inhaled steroids; Z79.899 Other long term (current) drug therapy; Z98.890 Other specified postprocedural states
CPT/HCPCS: 45380; 88305; J2704

== ENCOUNTER 2023-07-12 15:09 | Outpatient (REF) | payer OTHER, SELFPAY ==
--- NOTE | 2023-07-12 15:13 | EMG_ITS ---
Chief complaint: Bilateral hand numbness Reason for referral: Evaluate for Carpal Tunnel Syndrome or ulnar neuropathy Referred by: Asia Neri NP Procedure done: Bilateral upper extremities NCS Precautions and/or limitations: Poor tolerance of this The limb temperature was monitored continuously and remained between 32-36 degrees C during the performance of the NCS. Ulnar motor NCS was performed with moderate elbow flexion between 70-90 degrees, with across-elbow distance of 10 cm. Nerve Conduction Studies Anti Sensory Summary Table ?Stim Site NR Onset (ms) Norm Onset (ms) Peak (ms) Norm Peak (ms) O-P Amp (?V) Norm O-P Amp Site1 Site2 Delta-0 (ms) Dist (cm) Emeterio (m/s) Norm Emeterio (m/s) Left Median Anti Sensory (2nd Digit) Wrist ? 2.5 3.3 <3.6 55.3 >10 Wrist 2nd Digit 2.5 14.0 56 Right Median Anti Sensory (2nd Digit) Wrist ? 2.4 3.2 <3.6 45.4 >10 Wrist 2nd Digit 2.4 14.0 58 Motor Summary Table ?Stim Site NR Onset (ms) Norm Onset (ms) O-P Amp (mV) Norm O-P Amp iAmp (mV) Amp (1st) (%) Site1 Site2 Delta-0 (ms) Dist (cm) Emeterio (m/s) Norm Emeterio (m/s) Left Median Motor (Abd Poll Brev) Wrist ? 3.7 <3.9 9.9 >4.5 11.8 100.0 Elbow Wrist 3.6 20.0 56 >45 Elbow ? 7.3 8.8 10.7 88.9 Right Median Motor (Abd Poll Brev) Wrist ? 3.8 <3.9 11.2 >4.5 13.4 100.0 Elbow Wrist 3.5 21.0 60 >45 Elbow ? 7.3 10.7 12.9 95.5 Right Ulnar Motor (Abd Dig Minimi) Wrist ? 2.6 <3.0 8.8 >5 12.0 100.0 B Elbow Wrist 3.3 18.0 55 >45 B Elbow ? 5.9 7.8 10.8 88.6 A Elbow B Elbow 1.8 10.0 56 >45 A Elbow ? 7.7 8.0 10.6 90.9 FINDINGS: All motor and sensory nerves tested showed normal latencies, amplitudes and conduction velocities. Patient had poor tolerance of test. We focused on testing the median nerves. Had to abort rest of study as she was becoming sweaty. IMPRESSION: 1. This is a normal but limited NCS study. 2. There is no electrodiagnostic evidence for bilateral median neuropathy or right ulnar neuropathy. CLINICAL COMMENT: Advised to wear wrist splints at night. If not improved in 3-6 months, consider sending patient back, if she can tolerate the test. Thank you for your kind referral. Marian Valle MD, LILLY Board Certified, [place] Board of Physical Medicine and Rehabilitation (ABPMR) Board Certified, [place] Board of Electrodiagnostic Medicine (ABEM) CODIN MTDD
== END 2023-07-12 15:10 | disposition home or self-care (01) ==
LOC: HO.NEURO 15:09
PROVIDERS: PCP Pediatrics; Visit Provider Registered Nurse
DX: R20.0 Anesthesia of skin (principal); R20.2 Paresthesia of skin
CPT/HCPCS: 95909

== ENCOUNTER → 2023-07-12 15:13 | Outpatient (BNV) | payer OTHER, SELFPAY | PROVIDERS: PCP Pediatrics; Visit Provider Physical Medicine & Rehabilitation | DX: M79.641 Pain in right hand (principal); M79.642 Pain in left hand; R20.2 Paresthesia of skin | CPT/HCPCS: 95909 ==

== ENCOUNTER 2023-11-11 15:16 | Outpatient (REF) | payer OTHER, SELFPAY ==
--- NOTE | ~2023-11-11 | XR_ITS ---
EXAMINATION: XR SHOULDER, RIGHT CLINICAL INFORMATION: Right shoulder pain. COMPARISON: None available. TECHNIQUE: Three views of the right shoulder. FINDINGS: Mild glenohumeral osteoarthritis with marginal osteophytes at the glenoid. Joint space appears well-preserved. No fractures. Normal AC joint. Surgical clips in the right axilla. XR/XR shoulder RT min 2V IMPRESSION: Mild glenohumeral osteoarthritis. No acute osseous findings. Electronically signed by: Jed Mcadams MD 11/17/2023 09:31 PM EDT
== END 2023-11-11 15:17 | disposition home or self-care (01) ==
LOC: HO.HHCX 15:16
PROVIDERS: Visit Provider Student in an Organized Health Care Education/Training Program
DX: M25.511 Pain in right shoulder (principal)
CPT/HCPCS: 73030

== ENCOUNTER 2024-03-11 16:39 | Outpatient (REF) | payer OTHER, SELFPAY ==
[2024-03-12 08:16] LABS: HPV 16,18/45 See PAP report
== END 2024-03-11 16:40 | disposition home or self-care (01) ==
LOC: HO.HHCLNP 16:39
PROVIDERS: Visit Provider Advanced Practice Midwife
DX: Z12.4 Encounter for screening for malignant neoplasm of cervix (principal); R87.610 Atypical squamous cells of undetermined significance on cytologic smear of cervix (ASC-US); R87.810 Cervical high risk human papillomavirus (HPV) DNA test positive
CPT/HCPCS: 87626; 88175

== ENCOUNTER → 2024-04-09 10:00 | Outpatient (BNVA) | payer OTHER, SELFPAY | PROVIDERS: PCP Pediatrics; Visit Provider Internal Medicine Pulmonary Disease | DX: J45.909 Unspecified asthma, uncomplicated (principal); J47.9 Bronchiectasis, uncomplicated; Z91.09 Other allergy status, other than to drugs and biological substances; Z79.899 Other long term (current) drug therapy | CPT/HCPCS: 99212 ==

== ENCOUNTER 2024-06-25 11:04 | Outpatient (REF) | payer OTHER, SELFPAY ==
--- OUTSIDE RECORDS SUMMARY | 2024-06-25 13:05 | XMS_ITS | Encounter Summary ---
Author Organization [employer] Address [address] [place] [address] Care Team Providers Care Crown Perforator Operator Name Role Phone Asia Forte Primary Care Provider [phone] Reason for Visit * Reason Comments Med Refill Encounter Details Date Type Department Care Team ([facility] st Contact Info) Description 06/23/2024 Refill [facility] [address] [place] [address] Asia Forte FNP [address] [place] [address] Primary hypertension Social History Tobacco Use Types Packs/Day Years Used Date Smoking Tobacco: Never Passive Smoke Exposure: Never Smokeless Tobacco: Never Alcohol Use Standard Drinks/Week Comments Never 0 (1 standard drink = 0.6 oz pur e alcohol) Alcohol Answer Date Recorded Frequency of Alcohol Consumption Not on file 12/04/2023 Average Number of Drinks Not on file 024 Frequency of Binge Drinking Not on file 04/2023 Score 0 12/04/2023 Depression Answer Date Recorded Patient Health Questionnaire-9 Score 0 12/04/2023 Patient Health Questionnaire-9 Score 0 12/04/2023 Last PHQ-9: Questionnaire Data Not on file 1 Housing Stability Answer Date Recorded What is your housing situation today? I have [place] 04/08/[address] you li ve. Do you have problems with any of the following? None of the above 04/08/2024 Food Insecurity Answer Date Recorded Within the past 12 months, y ou worried that your food would run out before you got money to buy more: Never True 04/08/2024 Within the past 12 months,th e food you bought just didn't last and you didn't have enough money to get more: Never True 07/2024 Transportation Answer Date Recorded In the past 12 months, has l ack of transportation kept you from medical appts, meetings, work or from getting things needed for daily living? No 04/08/2024 Utilities Answer Date Recorded In the past 12 months, has t he electric, gas, oil or water company threatened to shut off services in your home? No 04/08/2024 Depression Answer Date Recorded Patient Health Questionnaire-2 Score 0 12/04/2023 Internet Access Answer Date Recorded Internet Access Q1 Yes 04/08/2024 Internet Access Q2 Not on file 04/08/2024 Comments No Sex and Gender Information Value Date Recorded Sex Assigned at Female 01/01/2022 10:40 AM EDT Legal Sex Female 10:40 AM EDT Gender Identity Female 01/01/2022 10:40 AM EDT Sexual Orientation Straight 01/01/2022 10 :40 AM EDT documented as of this encounter Plan of Treatment Not on file documented as of this encounter Visit Diagnoses Diagnosis Primary hypertension Unspecified essential hypertension documented in this encounter Additional Health Concerns Assessment Noted Time PHQ-9 Depression Total Score: 0 12/04/19 24 10:14 AM EDT documented as of this encounter Care Teams Crown Perforator Operator Relationship Specialty Start Date End Date Asia Forte FNP [address] [place] [address] PCP - General Family Medicine 02/13/22 documented as of this encounter
--- OUTSIDE RECORDS SUMMARY | 2024-06-25 13:05 | XMS_ITS | Encounter Summary ---
Author Organization [employer] Address [address] [place] [address] Care Team Providers Care Computer Project Manager Name Role Phone Asia Forte DALTON Primary Care Provider [phone] Encounter Details Date Type Department Care Team (Latest Contact Info) Description 06/24/2024 Travel Social History Tobacco Use Types Packs/Day Years [...] documented as of this encounter Visit Diagnoses Not on filedocumented in this encounter Additional Health Concerns Assessment Noted Time PHQ-9 Depression Total Score: 0 12/04/19 24 10:14 AM EDT documented as of this encounter Care Teams Computer Project Manager Relationship Specialty Start Date End Date Asia Forte FNP [address] [place] [phone] PCP - General Family Medicine 02/13/22 documented as of this encounter
--- OUTSIDE RECORDS SUMMARY | 2024-06-25 13:05 | XMS_ITS | Encounter Summary ---
Author Organization [employer] Address [address] [facility] 7t [place] [address] Care Team Providers Care Cash Management Clerk Name Role Phone Tiffany Amaro MD Primary Care Provider Asia Parker Primary Care Provider Encounter Details Date Type Department Care Team ([facility] st Contact Info) Description 11/20/2021 Abstract [facility] [address] [place], [place] [phone] Provider, MD Felisa Social History Tobacco Use Types Packs/Day Years Used Date Smoking Tobacco: Never Assessed Comments Unknown Sex and Gender Information Value Date Recorded Sex Assigned at Female 01/01/2022 10:40 AM EDT Legal Sex Female 10:40 AM EDT Gender Identity Female 01/01/2022 10:40 AM EDT Sexual Orientation Straight 01/01/2022 10 :40 AM EDT documented as of this encounter Plan of Treatment Not on file documented as of this encounter Procedures Procedure Name Priority Date/Time Associated Diagnosis Comments PAP/HPV Routine 11/09/2021 documented in this encounter Results * Pap Smear (11/09/2021) HM Pap smear NIL HPV+ Historical Provider HEALTH MAINTENANCE Final Result documented in this encounter Visit Diagnoses Not on filedocumented in this encounter Care Teams Cash Management Clerk Relationship Specialty Start Date End Date Tiffany Amaro MD PCP - General Family Medicine 07/10/21 02/12/22 Asia Forte FNP [address] [place] [address] PCP - General Family Medicine 02/13/22 documented as of this encounter
--- OUTSIDE RECORDS SUMMARY | 2024-06-25 13:05 | XMS_ITS | Clinical Summary ---
Author Organization [employer] Address [address] [place] [address] Care Team Providers Care Critical Care Nurse Practitioner Name Role Phone Raymondbg Asia DALTON Primary Care Provider [phone] Allergies No known active allergies Medications ibuprofen 600 MG tablet Take 1 tablet by mouth every 6 (six) hours if needed. 08/03/19 22 Active Acetaminophen Extra Strength 500 MG tablet TAKE 2 TABLETS BY MOUTH 4 TIMES A DAY NEEDED FOR PAIN 08/03/19 22 Active fluticasone (Flonase) 50 MCG/ACT nasal sprayIndications :Seasonal allergies Administer 2 sprays into each nostril in the morning. 16 g 3 03/09/19 23 Active albuterol (Ventolin HFA) 108 (90 Base) MCG/ACT inhalerIndicatio ns:Chronic obstructive pulmonary disease, unspecified COPD type (CMS/HCC) INHALE 2 PUFFS BY MOUTH EVERY 4 HOURS NEEDED FOR WHEEZING OR SHORTNESS OF BREATH 18 g 11 07/01/19 24 Active anastrozole (Arimidex) 1 MG chemo tablet Take 1 mg by mouth Once per day. 09/02/19 24 Active Symbicort 160-4.5 MCG/ACT inhalerIndicatio ns:Chronic obstructive pulmonary disease, unspecified COPD type (CMS/HCC) INHALE 2 PUFFS BY MOUTH TWICE DAILY IN THE MORNING AND IN THE EVENING RINSE MOUTH AFTER USING. 3 each 3 03/12/19 25 Active fexofenadine (Rhiannon) 180 MG tablet Take 1 tablet (180 mg) by mouth if needed each day (Allergies, nasal congestion). 90 tablet 1 04/08/19 25 025 Active lisinopril 30 MG tabletIndication s:Primary hypertension TAKE 1 TABLET BY MOUTH EVERY DAY 90 tablet 1 06/25/19 25 Active Diclofenac Sodium 1 % gelIndications:T cardiovascular surgeon middle finger of left hand To apply to the affected area 3 times a day 100 g 06/26/19 25 Active lisinopril 30 MG tabletIndication s:Primary hypertension TAKE 1 TABLET BY MOUTH EVERY DAY 90 tablet 1 12/23/19 24 025 Discontinued Active Problems Problem Noted Date Diagnosed Date Hyperlipidemia LDL goal <100 06/26/2023 Overview (06/28/2023): Lab Results Component Value Date CHOL 250 (H) 05/17/2023 TRIG 113 05/17/2023 HDL 73 05/17/2023 LDLCHOLCAL 155 (H) 05/17/2023 - ASCVD 3.6%, PCE '18 (2.4%). Statin not indicated at this time. - Cont lifestyle modifications History of tuberculosis 12/26/2022 Overview (12/26/2022): ?? History of Tuberculosis in the [facility]. 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 Reactivation approx 20 years later, received tx. ?? Following with [facility] Pulm Assessment & Plan (06/28/2023 7:48 AM EDT): Consider chronic symptoms of cough with production of blood 2/2 scarring of lungs r/t TB vs COPD vs other. Last CT completed Mar 2023. Follow up precautions reviewed. Primary hypertension 12/26/2022 Overview (04/09/2024): BP goal < 140/90 mmHg Continues with lisinopril 30mg daily Assessment & Plan (04/09/2024 6:35 PM EST): -Well controlled, cont current regimen Assessment & Plan (12/04/2023 11:24 AM EDT): Continue on current med regimen, BP is at goal Assessment & Plan (06/28/2023 7:49 AM EDT): -Check labs: BMP in 2 weeks after increase in dose -Call office if readings continue above goal at home Assessment & Plan (02/16/2023 1:07 PM EST): -Majority of time well controlled, with intermittent elevations -Shared decision making to cont same med dose. Encourage lifestyle interventions and call office for persistently elevated home readings -ED/urgent care precautions Assessment & Plan (01/17/2023 8:09 PM EST): Encourage lifestyle interventions and call office for persistently elevated home readings Healthcare maintenance 12/26/2022 Overview (04/08/2024): Pap: Mar 2023, ASCUS, HPV positive (neg 16, 18). Repeat in 1 year. Mammogram: hx of breast CA, currently following with [facility] breast clinic Colonoscopy: 06/28/23 (Dr. Rubio), hyperplastic polyp. Repeat in 10 years. Optometry: [facility] , [facility] for cataracts Malignant neoplasm of female breast 03/09/2022 Overview (02/16/2023): -Diagnosed July 2021, s/p biopsy which revealed invasive ductal carcinoma grade 2 of the right breast -Estrogen and progesterone receptor positive -Followed by [facility] - s/p surgery and radiation -Continues on tamoxifen 20mg daily -Transferred to to [facility] ([facility]) ?? Plan: Next Mammo July 2023 ?? Cont Tamoxifen 20mg daily (end Jan 2024), then switch to anastrozole ?? Follow up 6 months Assessment & Plan (03/10/2022 2:14 PM EST): -Diagnosed July 2021, s/p biopsy which revealed invasive ductal carcinoma grade 2 of the right breast -Estrogen and progesterone receptor positive -Followed by [facility] - s/p surgery and radiation -Continues on tamoxifen 20mg daily Seasonal allergies 03/09/2022 Assessment & Plan (03/10/2022 2:22 PM EST): -Continue with cetirizine 10mg daily -Continue with flonase PRN Chronic obstructive lung disease 12/18/2021 Overview (06/28/2023): -Following with [facility] Pulm (Dr. Aj) -Med regimen through Pulm: Symbicort 2 puffs BID Albuterol PRN Nucala injections (restarted Mar 2023) Assessment & Plan (04/09/2024 6:34 PM EST): -Cont with current regimen Assessment & Plan (12/04/2023 11:26 AM EDT): Continue wit current med regimen COPD is well controlled at this time Assessment & Plan (06/28/2023 7:38 AM EDT): -Reports breathing better controlled since re-starting Nucala. Will follow up with any increase in frequency or worsening of symptoms of cough w/ blood. Assessment & Plan (02/16/2023 1:03 PM EST): -Continue with symbicort 2 puffs BID -Continue with albuterol PRN -Continue following with [facility] Pul ?? Plan to re-start Nucala injections Mar 2023 (waiting for insurance auth) Assessment & Plan (01/17/2023 8:08 PM EST): -Continue with symbicort 2 puffs BID -Continue with albuterol PRN -Continue following with [facility] Pul Assessment & Plan (03/10/2022 2:21 PM EST): -Continue with symbicort 2 puffs BID -Continue with albuterol PRN -Continue following with [facility] Pul, pt will reach out if interested in referral to another location Resolved Problems Problem Noted Date Diagnosed Date Resolved Date Colon cancer screening 12/04/202304/09 Encounter for other preprocedural examination 12/04/1904/09/2024 Mild persistent asthma without complication 03/09/2022 03/10/2022 Urinary tract infection symptoms 03/09/2022 03/10/2022 Encounters Date Type Department Care Team Description 06/25/2024 9:30 AM EDT Office Visit [facility] [address] [place] [address] Krystyna Uriostegui MD Trigger middle finger of left hand (Primary Dx); Decreased hearing of left ear; H/O cholesteatoma; Easy bruising; Pain of left anterior lower extremity 06/25/2024 Travel 06/24/2024 Travel 06/23/2024 Refill [facility] [address] [place] [phone] Asia Forte FNP Primary hypertension 06/15/2024 Telephone [facility] [address] [place] [phone] Asia Forte FNP ER Follow-up 04/08/2024 10:00 AM EST Office Visit [address] [address] Asia Forte FNP Nasal congestion with rhinorrhea (Primary Dx); Healthcare maintenance; Chronic obstructive pulmonary disease, unspecified COPD type (CMS/[facility]); Primary hypertension 04/08/2024 Travel 04/07/2024 Telephone [facility] [address] [place] [address] Abbey Teran MA Chart Prep 04/03/2024 Travel from Last 3 Months Immunizations Name Administration Dates Next Due Hep B, adult 11/06/2022,08/13/2022,03/17/2022 Influenza injectable quadriv alent preservative free 12/24/2022,02/12/2022 Influenza, IIV3, injectable 12/25/2022 Pfizer Covid-19 Vaccine 12+ 02/06/2021 Tdap 08/13/2022,10/10/2021 Zoster, Recombinant 11/06/2022,08/13/2022 Social History Tobacco Use Types Packs/Day Years Used Date Smoking Tobacco: Never Passive Smoke Exposure: Never Smokeless Tobacco: Never Tobacco Cessation:Counseling Given: Not Answered Alcohol Use Standard Drinks/Week Comments Never 0 [...] t he electric, gas, oil or water [employer] threatened to shut off services in your [...] Orientation Straight 01/01/2022 10 :40 AM EDT Last Filed Vital Signs Vital Sign Reading Time Taken Comments Blood Pressure 142/90 06/25/2024 9:46 AM EDT Pulse 78 06/25/2024 9:46 AM EDT Temperature 36.4 ??C (97.6 ??F) 06/25/2024 9:46 AM ED T Respiratory Rate 20 06/25/2024 9:46 AM EDT Oxygen Saturation 98% 06/25/2024 9:46 AM EDT Inhaled Oxygen Concentration - - Weight 73.6 kg (162 lb 3.2 oz) 06/25/2024 9:46 A M EDT Height 160 cm (5' 3 ) 06/25/2024 9:46 AM EDT Body Mass Index 28.73 06/25/2024 9:46 AM EDT Plan of Treatment Health Maintenance Due Date Last Done Comments CT Colonography 1965 FIT DNA/Cologuard 1965 FIT 1965 FOBT 1965 Sigmoidoscopy 1965 Pneumococcal Vaccine: 50+ Years (1 of 2 - PCV) 05/01/1986 Mammogram 08/21/2022 08/21/2021, 08/02, 07/20/2021, Additional history exists Depression Screening 12/03/2024 12/04/2023, 12/04/19 Cervical Cancer Screening 03/11/2025 HPV/Cotest 03/11/2025 01/28/2023, 09/0 10/2021, 11/09/2021 Pap Smear 03/11/2025 03/11/2024, 01/03, 11/09/2021, Additional history exists Alcohol/Substance Use Screening 04/08/2025 04/08/2024 SDOH Screening 04/08/2025 04/08/2024 Tobacco Screening 06/25/2025 06/25/2024 Lipid Panel 05/16/2028 05/17/2023, 07/11/2021 DTaP/Tdap/Td Vaccines (3 - Td or Tdap) 08/13/2032 08/13/2022, 10/10/2021 Colonoscopy 06/27/2033 06/28/2023 Colorectal Cancer Screening 06/27/2033 RSV Patients and Patients Aged 60 years or older (1 - 1-dose 75+ series) 05/01/2042 HIV Screening Completed 07/11/2021 Hepatitis C Screening Completed 07/11/2021 Hepatitis B Vaccines Completed 11/06/2022, 08/13/2022, 03/17/2022 Zoster Vaccines Completed 11/06/2022, 08/13/2022 COVID-19 Vaccine Completed 12/30/2023, , 12/13/2021, Additional history exists Influenza Vaccine Completed 12/30/2023, , 12/24/2022, Additional history exists HIB Vaccines Aged Out No longer eligi ble based on patient's age to complete this topic HPV Vaccines Aged Out No longer eligi ble based on patient's age to complete this topic Hepatitis A Vaccines Aged Out No long er eligible based on patient's age to complete this topic IPV Vaccines Aged Out No longer eligi ble based on patient's age to complete this topic Meningococcal Vaccine Aged Out No manny estevan eligible based on patient's age to complete this topic RSV under 20 months Aged Out No longe r eligible based on patient's age to complete this topic Rotavirus Vaccines Aged Out No longer eligible based on patient's age to complete this topic Procedures Procedure Name Priority Date/Time Associated Diagnosis Comments PAP SMEAR Routine 03/11/2024 12:00 AM EST Cervical cancer screening HM COLONOSCOPY Routine 06/28/2023 1:24 PM EDT LIPID PANEL, STANDARD Routine 05/17/2023 10:26 AM EDT Primary hypertension HPV MRNA E6/E7 REFLEX TO HPV 16, 18/45 Routine 01/28/2023 9:45 AM EST Primary hypertension MAMMOGRAM GENERIC Routine 07/20/2021 11: 18 AM EDT ZZZ HISTORICAL HEPATITIS C AB W/REFL TO HCV RNA, QN, PCR Routine 07/11/2021 9:00 AM EDT HIV 1/2 ANTIGEN/ANTIBODY, FOURTH GENERATION W/RFL Routine 07/11/2021 9:00 AM EDT from Last 3 Months or Most Recently Relevant to Health Maintenance Results * Pap Smear (03/11/2024 12:00 AM EST) Swab Cervix uteri structure / Unknown 03/11/2024 03/12/2024 7:40 AM EST Narrative [facility] - 03/18/2024 3:18 PM EST ----- ------- Name: Alva Mann ? Age/Sex: 58/F ? : 1965 Unit#: [id number] ?? Attend Dr: MAYKEL WALTER CNM ?Re03/11/24 ?Status: DEP REF ? Location: HO.HHCLNP ? Disch: ? ----- ------- SPEC : [id number] ?RECD: 03/12/24 ? STATUS: ??SOUT ? REQ NUM: [id number] ? DHAVAL: 03/11/24-0000 ? SUBM DR: MAYKEL WALTER CNM ? ENTERED: ??03/12/24-811 ?SP TYPE: Pap Smr ?OTHR : ? ORDERED: ??Pap Smear, PAP path review ? Interpretation ?? General Category: ?? Epithelial cell abnormality. ?? Adequacy: ?Endocervical component present. ?? Interpretation: ?Atypical squamous cells of undetermined significance. ?Atrophy and inflammation. ? HPV High Risk: ??Positive ? HPV Genotyping 16: ??Negative ?? HPV Genotyping 18: ??Negative ?Clinical Information LMP: Postmenopausal Previous PAP test: 2022, negative Other surgery: Positive HPV 2021 Other history: ? Material Received ?? ThinPrep ----- ------- Signed (signature on file) Cody Milton MD 03/18/24 1518 ? ----- ------- ? END OF REPORT ? Maykel Walter CNM LAB CYTOLOGY ORDERABLES F inal Result Performing Organization Address City/[facility]/ZIP Co de Phone Number [facility] [address] [place] [address] [phone] * Hm Colonoscopy (06/28/2023 1:24 PM EDT) Colonoscopy Normal Normal Richard Rubio MD HEALTH MAINTENANCE Final Res ult * (ABNORMAL) Lipid Panel, Standard (05/17/2023 10:26 AM EDT) Triglycerides 113 <150 mg/dL [facility] Comment:Desirable Triglyceri de: less than 150 mg/dLBorderline High Triglyceride 150-199 mg/dLHigh Triglyceride: 200-499 mg/dLVery High Triglyceride: greater than or equal to 5OO mg/dL Cholesterol 250(H) <200 mg/dL [facility] Comment:Desirable Cholestero l: less than 200 mg/dLBorderline High Cholesterol: 200-239 mg/dLHigh Cholesterol: greater than 239 mg/dL LDL Cholesterol Calculated 155(H) <100 mg/dL [facility] Comment:Desirable LDL: less than 100 mg/dLNear Optimal/Above Optimal LDL: 110- 129 mg/dLBorderline High LDL: 130-159 mg/dLHigh LDL: 160-189 mg/dLVery High LDL: greater than or equal to 190 mg/dL HDL Cholesterol 73 >40 mg/dL [facility] Comment:Desirable HDL: great er than 40 mg/dL Note: This HDL assay may give artificially low results in patients with liver disease. Blood Venous blood specimen / Unknown 05/17/2023 10:26 AM EDT 05/17/2023 10:26 AM EDT Jess Sanchez MD LAB BLOOD ORDERABLES Final Re sult Performing Organization Address City/[facility]/ZIP Co de Phone Number [facility] [address] [place] [address] [phone] * HPV mRNA E6/E7 w/Reflex to HPV Genotypes 16, 18/45 (01/28/2023 9:45 AM EST) HPV nRNA E6/E7 Not Detected Not Detected [facility] Comment:Methodology: Transcr iption-Mediated AmplificationThis assay detects E6/E7 viral messenger RNA (mRNA) from 14high-risk HPV types (16,18,31,33,35,39,45,51,52,56,58,59,66,68).Cervical sources are required for HPV testing.If a vaginal source from a patient who has had atotal hysterectomy with removal of cervix wassubmitted, please contact the testing laboratoryfor alternative testing options.For additional information, please refer tohttp://education.Verient/faq/HVY263c6(This link if provided for information/educational purposes only.)THIS TEST WAS PERFORMED AT:[facility] [place] [id number] BREWER MD HPV mRNA E6/E7 [facility] HPV 16 RNA [facility] HPV 18/45 RNA [facility] 01/28/2023 9:45 AM EST 01/29/2023 11:40 AM EST Maykel Walter [facility] CYTOLOGY ORDERABLES F inal Result Performing Organization Address City/State/[facility] Co de Phone Number [facility] [address] [place] [phone] * Mammography Report 1 (07/20/2021 11:18 AM EDT) Anatomical Region Laterality Modality Breast Bilateral Mammography 07/20/2021 11:1 8 AM EDT Narrative 07/25/2021 2:26 PM EDT Refer to the Notes tab for result details [facility] Procedure: Mammography Report 1 Procedure Note Provider, MD Felisa - 05/27/2022 Refer to the Notes tab for result details [facility] Procedure: Mammography Report 1 Asia Aparicio ANHYDROUS AMMONIA PRODUCTION SUPERVISOR IMG BI PROCEDURES Final Result * HEPATITIS C AB W/REFL TO HCV RNA, QN, PCR (07/11/2021 9:00 AM EDT) HEPATITIS C ANTIBODY NON-REACT LIZZ NON-REACT LIZZ [facility] INDEX 0.07 <1.00 [facility] Comment: ?? HCV antibody was non-reactive. There is no laboratory ?? evidence of HCV infection. ?? In most cases, no further action is required. However, if recent HCV exposure is suspected, a test for HCV RNA (test code 89381) is suggested. ?? For additional information please refer to http://Rift.io.Verient/faq/ZHS42i2 (This link is being provided for informational/ educational purposes only.) ?? 07/11/2021 9:00 AM EDT Tiffany Amaro MD HISTORICAL/NON ORDERABLE LAB S Final Result [facility] [address] * HIV 1/2 ANTIGEN/ANTIBODY,FOURTH GENERATION W/RFL (07/11/2021 9:00 AM EDT) HIV-1/2 ANTIGEN AND ANTIBODIES, 4TH GENERATION W/ REFLEX NON-REACT LIZZ NON-REACT LIZZ [facility] Comment: HIV-1 antigen and HIV-1/HIV-2 antibodies were not detected. There is no laboratory evidence of HIV infection. ?? PLEASE NOTE: This information has been disclosed to you from records whose confidentiality may be protected by state law. ??If your state requires such protection, then the state law prohibits you from making any further disclosure of the information without the specific written consent of the person to whom it pertains, or as otherwise permitted by law. A general authorization for the release of medical or other information is NOT sufficient for this purpose. ? For additional information please refer to http://Rift.io.Verient/faq/MPR862 (This link is being provided for informational/ educational purposes only.) ? The performance of this assay has not been clinically validated in patients less than 2 years old. ?? 07/11/2021 9:00 AM EDT Tiffany Amaro MD LAB BLOOD ORDERABLES Final R esult [facility] [address] from Last 3 Months or Most Recently Relevant [place] [id number] GENERIC OTHER Member Subscriber Plan / Payer (Ef fective 2022-Present) Name:Alva Mann Relation to Subscriber:Self Name:Alva Mann Payer ID:Not on file Group ID:Not on file Type:Not on file Address: [address] [place] [address] [place] [address] Care Teams Critical Care Nurse Practitioner Relationship Specialty Start Date End Date Asia Forte FNP [address] [place] [address] PCP - General Family Medicine 02/13/22
--- OUTSIDE RECORDS SUMMARY | 2024-06-25 13:05 | XMS_ITS | Encounter Summary ---
Author Organization [employer] Address [address] [place] [address] Care Team Providers Care Card Assembler Name Role Phone Asia Forte DALTON Primary Care Provider [phone] Encounter Details Date Type Department Care Team (Latest Contact Info) Description 06/25/2024 Travel Social History Tobacco Use Types Packs/Day [...] documented as of this encounter Care Teams Card Assembler Relationship Specialty Start Date End Date Asia Forte FNP [address] [place] [phone] PCP - General Family Medicine 02/13/22 documented as of this encounter
--- OUTSIDE RECORDS SUMMARY | 2024-06-25 13:05 | XMS_ITS | Encounter Summary ---
Author Organization [employer] Address [address] [place] [address] [address] [place] [address] Care Team Providers Care Seniour Insight Manager Name Role Phone Asia Forte Primary Care Provider [phone] Reason for Referral * Imaging (Routine) - Pending Review Specialty Diagnoses / Procedures Referred By Polly t Referred To Contact Cardiology Diagnoses Pain of left anterior lower extremity Procedures Vascular US ankle brachial index (NATHAN) without exercise Krystyna Uriostegui MD [address] [place] [address] Phone: tel: fax: Referral ID Status Reason Start Date Expiration Date Visits Requested Visits Authorized [id number] Pending Review Perform Procedure 06/25/2024 06/25/2025 1 1 * Consultation (Routine) - Pending Review Specialty Diagnoses / Procedures Referred By Contac t Referred To Contact Otolaryngology Diagnoses Decreased hearing of left ear H/O cholesteatoma Krystyna Uriostegui MD [address] [place] [address] Phone: tel: fax: Referral ID Status Reason Start Date Expiration Date Visits Requested Visits Authorized [id number] Pending Review Specialty Services Required 06/25/2024 06/25/2025 1 1 * Consultation (Routine) - Pending Review Specialty Diagnoses / Procedures Referred By Contac t Referred To Contact Orthopaedic Surgery Diagnoses Trigger middle finger of left hand Krystyna Uriostegui MD [address] [place] [address] Phone: tel: fax: Referral ID Status Reason Start Date Expiration Date Visits Requested Visits Authorized [id number] Pending Review Specialty Services Required 06/25/2024 06/25/2025 1 1 Reason for Visit * Reason Comments left middle trigger finger. Encounter Details Date Type Department Care Team ([facility] st Contact Info) Description 06/25/2024 9:30 AM EDT Office Visit [facility] CHC MED & PEDS [address] [place] [address] Krystyna Uriostegui MD [address] [place] [address] Trigger middle finger of left hand (Primary Dx); Decreased hearing of left ear; H/O cholesteatoma; Easy bruising; Pain of left anterior lower extremity Social History Tobacco Use Types Packs/Day Years [...] AM EDT documented as of this encounter Last Filed Vital Signs Vital Sign Reading [...] Mass Index 28.73 06/25/2024 9:46 AM EDT documented in this encounter Progress Notes * Krystyna Uriostegui MD - 06/25/2024 9:30 AM EDT Images from the original note were not included. SUBJECTIVE Alva Mann is a 59 y.o. female who presents for left middle trigger finger. . HPI 1)H/o left middle finger locking in flexion x about a year. Especially when holding something. Associated w/ PIP and MCP joint pain b/l. 2) 8 months h/o decreased hearing of the left ear. Pt is s/p surgery for removal of cholesteatoma 3)H/o left lower limb discomfort during the daytime relieved w/ lying down. No swelling. NO fever or other constitutional symptoms. Patient Active Problem List Diagnosis Chronic obstructive lung disease (CMS/HCC) Malignant neoplasm of female breast (CMS/HCC) Seasonal allergies History of tuberculosis Primary hypertension Healthcare maintenance Hyperlipidemia LDL goal <100 No Known Allergies Current Outpatient Medications on File Prior to Visit Medication Sig Dispense Refill Acetaminophen Extra Strength 500 MG tablet TAKE 2 TABLETS BY MOUTH 4 TIMES A DAY NEEDED FOR PAIN albuterol (Ventolin HFA) 108 (90 Base) MCG/ACT inhaler INHALE 2 PUFFS BY MOUTH EVERY 4 HOURS NEEDED FOR WHEEZING OR SHORTNESS OF BREATH 18 g 11 anastrozole (Arimidex) 1 MG chemo tablet Take 1 mg by mouth Once per day. fexofenadine (Rhiannon) 180 MG tablet Take 1 tablet (180 mg) by mouth if needed each day (Allergies,nasal congestion). 90 tablet 1 fluticasone (Flonase) 50 MCG/ACT nasal spray Administer 2 sprays into each nostril in the morning. 16 g 3 ibuprofen 600 MG tablet Take 1 tablet by mouth every 6 (six) hours if needed. lisinopril 30 MG tablet TAKE 1 TABLET BY MOUTH EVERY DAY 90 tablet 1 Symbicort 160-4.5 MCG/ACT inhaler INHALE 2 PUFFS BY MOUTH TWICE DAILY IN THE MORNING AND IN THE EVENING RINSE MOUTH AFTER USING. 3 each 3 [DISCONTINUED] lisinopril 30 MG tablet TAKE 1 TABLET BY MOUTH EVERY DAY 90 tablet 1 No current facility-administered medications on file prior to visit. Review of Systems OBJECTIVE Vitals: 06/25/24 0946 BP: (!) 142/90 BP Location: Right arm Patient Position: Sitting BP Cuff Size: Large adult Pulse: 78 Resp: 20 Temp: 97.6 ??F (36.4 ??C) TempSrc: Oral SpO2: 98% Weight: 162 lb 3.2 oz (73.6 kg) Height: 5' 3 (1.6 m) Physical Exam Constitutional: General: She is not in acute distress. Appearance: Normal appearance. She is not ill-appearing, toxic-appearing or diaphoretic. Cardiovascular: Rate and Rhythm: Normal rate. Pulmonary: Effort: Pulmonary effort is normal. Skin: Comments: 2 x 1.5 cm hyperpigmented, violaceous macule of the left proximal anterior leg 3 x 1.5 cm similar lesion distal and lateral to the previous lesion. ( See pictures) Neurological: Mental Status: She is alert. Assessment/Plan Assessment/Plan Diagnoses and all orders for this visit: Trigger middle finger of left hand - Referral to Orthopaedic Surgery; Future - Diclofenac Sodium 1 % gel; To apply to the affected area 3 times a day Decreased hearing of left ear - Referral to ENT; Future H/O cholesteatoma - Referral to ENT; Future Easy bruising Comments: Differential diagnosis discussed: Possible drug eruption, possible bruises. No history of trauma Labs ordered. Patient will be contacted with results. Orders: - CBC auto differential; Future - Basic Metabolic Panel; Future - Prothrombin Time-INR; Future Pain of left anterior lower extremity Comments: Possible venous insufficiency versus arterial insufficiency. ? dehydration. Leg elevation. An NATHAN will be ordered. Orders: - Vascular US ankle brachial index (NATHAN) without exercise; Future documented in this encounter Plan of Treatment Scheduled Orders Name Type Priority Associated Diagnoses Orde r Schedule CBC auto differential Lab Routine Easy bruising Expected: 06/25/2024 (Approximate), Expires: 06/25/2025 Basic Metabolic Panel Lab Routine Easy bruising Expected: 06/25/2024 (Approximate), Expires: 06/25/2025 Prothrombin Time-INR Lab Routine Easy bruising Expected: 06/25/2024, Expires: 06/25/2025 Scheduled Referrals Name Type Priority Associated Diagnoses Orde r Schedule Referral to Orthopaedic Surgery Outpatient Referral Routine Trigger middle finger of left hand Expected: 06/25/2024 (Approximate), Expires: 06/25/2025 Referral to ENT Outpatient Referral Routine Decreased hearing of left ear H/O cholesteatoma Expected: 06/25/2024 (Approximate), Expires: 06/25/2025 documented as of this encounter Visit Diagnoses Diagnosis Trigger middle finger of left hand- Primary Decreased hearing of left ear H/O cholesteatoma Easy bruising Other symptoms involving skin and integumentary tissues Pain of left anterior lower extremity documented in this encounter Additional Health Concerns Assessment Noted Time PHQ-9 Depression Total Score: 0 10/02/20 24 10:14 AM EDT documented as of this encounter Care Teams Seniour Insight Manager Relationship Specialty Start Date End Date Asia Forte FNP [address] [place] [id number] PCP - General Family Medicine 02/13/22 documented as of this encounter
[2024-06-25 14:12] LABS: MANUAL DIFF FLAG NO
[2024-06-25 14:27] LABS: Basophils Absolute Auto 0.1 X10*3/uL (0.0-0.2); Basophils Percent Auto 0.8 % (0-2); Eosinophils Absolute Auto 0.3 X10*3/uL (0.0-0.4); Eosinophils Percent Auto 3.9 % (0-4); Hematocrit 41.6 % (37.0-47.0); Hemoglobin 13.7 g/dl (12.0-16.0); Imm Gran Abs Auto 0.04 X10*3/uL (0.00-0.03); Imm Gran Pct Auto 0.5 % (0.0-0.4); Lymphocytes Absolute Auto 2.1 X10*3/uL (1.2-4.9); Mean Corpuscular HGB Conc 32.9 g/dl (31.0-35.0); Mean Corpuscular Hemoglobin 28.6 pg (27.0-33.0); Mean Corpuscular Volume 86.8 fL (80.0-98.0); Mean Platelet Volume 10.7 fL (9.4-12.3); Monocytes Absolute Auto 0.6 X10*3/uL (0.1-1.2); Monocytes Percent Auto 8.3 % (2-11); Neutrophils Absolute Auto 4.2 x10*3/uL (2.0-8.3); Neutrophils Percent Auto 57.5 % (45-73); Platelet Count 228 X10*3/uL (160-400); Red Blood Count 4.79 X10*6/uL (4.20-5.50); White Blood Count 7.4 X10*3/uL (4.8-10.8)
[2024-06-25 14:28] LABS: Anion Gap 15 (12-20); Blood Urea Nitrogen 11 mg/dL (9-16); Calcium 9.8 mg/dL (8.4-10.2); Carbon Dioxide 26 mmol/L (22-29); Chloride 103 mmol/L (96-108); Estimated Glomerular Filt Rate > 60; Glucose Random 93 mg/dL (60-115); Sodium 140 mmol/L (135-145)
[2024-06-25 14:32] LABS: Prothrombin Time 11.5 SEC (10.9-12.4)
== END 2024-06-25 11:05 | disposition home or self-care (01) ==
LOC: HO.CHCLDS 11:04
PROVIDERS: PCP Registered Nurse; Visit Provider Internal Medicine
DX: R23.3 Spontaneous ecchymoses (principal)
CPT/HCPCS: 36415; 80048; 85025; 85610

== ENCOUNTER → 2024-07-30 14:00 | Outpatient (BNV) | payer OTHER, SELFPAY | PROVIDERS: PCP Internal Medicine; Visit Provider Internal Medicine | DX: Z85.3 Personal history of malignant neoplasm of breast (principal); R92.323 Mammographic fibroglandular density, bilateral breasts | CPT/HCPCS: 77062; 77066 ==

== ENCOUNTER 2024-07-30 14:01 | Outpatient (REF) | payer OTHER, SELFPAY ==
--- NOTE | ~2024-07-30 | MM_ITS ---
EXAMINATION: MM DIAGNOSTIC DIGITAL BREAST TOMOSYNTHESIS, BILATERAL CLINICAL INFORMATION: History of right breast cancer in 2021 status post lumpectomy. Yearly screening surveillance. COMPARISON: Mammography: Comparison is made with relevant prior exams. TECHNIQUE: Digital breast mammography with tomosynthesis is performed in both the craniocaudal and mediolateral oblique views along with computer-aided detection (CAD). FINDINGS: There are scattered areas of fibroglandular density (ACR BI-RADS breast composition Category b). Right lumpectomy changes are stable. There are no significant masses, abnormal calcifications, or other abnormalities. Results are provided to the patient at time of visit by the technologist. MM/MM tomosynthesis diagnostic BI IMPRESSION: There are no significant changes from prior study. ASSESSMENT: BI-RADS BI-RADS 2 - Benign Findings RECOMMENDATION: 1 year F/U This patient's information was entered into a reminder system with a target due date for their next mammogram. Electronically signed by: Barbra Nuñez DO 07/30/2024 02:44 PM EDT
--- OUTSIDE RECORDS SUMMARY | 2024-07-30 14:12 | XMS_ITS | Encounter Summary ---
Author Organization [employer] Address [address] [facility] [address] [place] [address] Care Team Providers Care Leathersmith Name Role Phone Tiffany Amaro MD Primary Care Provider Asia Parker Primary Care Provider [phone] Encounter Details Date Type Department Care Team (Late st Contact Info) Description 11/20/2021 Abstract [facility] MEDICINE [address] [place] [address] Provider, MD Felisa Social History Tobacco Use Types Packs/Day Years Used Date Smoking Tobacco: Never Assessed Comments Unknown Sex and Gender Information Value Date Recorded Sex Assigned at Female 01/01/2022 10:40 AM EDT Legal Sex Female 10:40 AM EDT Gender Identity Female 01/01/2022 10:40 AM EDT Sexual Orientation Straight 01/01/2022 10 :40 AM EDT documented as of this encounter Plan of Treatment Upcoming Encounters Date Type Department Care Team (Late st Contact Info) Description 10/19/2024 2:30 PM EDT Office Visit [facility] CHC MED & PEDS [address] [place] [address] Asia Forte FNP [address] [place] [address] 12/14/2024 2:00 PM EDT Office Visit [facility] OPTOMETRY [address] [place] [address] Bayron, Sabrina, OD [address] [place] [address] documented as of this encounter Procedures Procedure Name Priority Date/Time Associated Diagnosis Comments PAP/HPV Routine 11/09/2021 documented in this encounter Results * Pap Smear (11/09/2021) Pap smear NIL HPV+ us Historical Provider HEALTH MAINTENANCE Final Result documented in this encounter Visit Diagnoses Not on filedocumented in this encounter Care Teams Leathersmith Relationship Specialty Start Date End Date Tiffany Amaro MD PCP - General Family Medicine 07/10/21 02/12/22 Asia Forte FNP [address] [place] [address] PCP - General Family Medicine 02/13/22 documented as of this encounter
== END 2024-07-30 14:02 | disposition home or self-care (01) ==
LOC: HO.MAMMO 14:01
PROVIDERS: PCP Internal Medicine; Visit Provider Surgery
DX: Z85.3 Personal history of malignant neoplasm of breast (principal)
CPT/HCPCS: 77062; 77066

== ENCOUNTER 2024-08-05 15:16 | Outpatient (REF) | payer OTHER, SELFPAY ==
--- NOTE | ~2024-08-05 | US_ITS ---
CLINICAL HISTORY: PAIN IN LEG ANKLE-BRACHIAL INDEX Comparison: None Findings: Right brachial artery 144 mmHg Right posterior tibial artery 200 mmHg Right dorsalis pedis artery 200 mmHg Left brachial artery 134 mmHg Left posterior tibial artery 168 mmHg Left dorsalis pedis artery 156 mmHg Impression: 1. Right NATHAN 1.39 is in the normal range 2. Left NATHAN 1.17 is in the normal range This document has been electronically signed by: Coco Oliver DO on 08/05/2024 17:51:24
--- OUTSIDE RECORDS SUMMARY | 2024-08-05 15:27 | XMS_ITS | Encounter Summary ---
Author Organization [employer] Address [address] [facility] [address] [place] [address] Care Team Providers Care Customer Insight Analyst Name Role Phone Tiffany Amaro MD Primary Care Provider Asia Parker Primary Care Provider [phone] Encounter Details Date Type Department Care Team (Late st Contact Info) Description 11/20/2021 Abstract [facility] MEDICINE [address] [place] [address] Provider, MD Felisa Social History Tobacco Use [...] Description 10/19/2024 2:30 PM EDT Office Visit [facility] CHC MED & PEDS [address] [place] [address] Asia Forte FNP [address] [place] [address] 12/14/2024 2:00 PM EDT Office Visit [facility] OPTOMETRY [address] [place] [address] Bayron, Sabrina, OD [address] [place] [address] documented as of this encounter Procedures Procedure Name Priority Date/Time Associated Diagnosis Comments PAP/HPV Routine 11/09/2021 documented in this encounter Results * Pap Smear (11/09/2021) Pap smear NIL HPV+ us Historical Provider HEALTH MAINTENANCE Final Result documented in this encounter Visit Diagnoses Not on filedocumented in this encounter Care Teams Customer Insight Analyst Relationship Specialty Start Date End Date Tiffany Amaro MD PCP - General Family Medicine 07/10/21 02/12/22 Asia Forte FNP [address] [place] [address] PCP - General Family Medicine 02/13/22 documented as of this encounter
== END 2024-08-05 15:17 | disposition home or self-care (01) ==
LOC: HO.US 15:16
PROVIDERS: PCP Registered Nurse; Visit Provider Internal Medicine
DX: M79.605 Pain in left leg (principal)
CPT/HCPCS: 93923

== ENCOUNTER → 2024-08-05 15:38 | Outpatient (BNV) | payer OTHER, SELFPAY | PROVIDERS: PCP Registered Nurse; Visit Provider Radiology Diagnostic Radiology | DX: M79.669 Pain in unspecified lower leg (principal) | CPT/HCPCS: 93923 ==

== ENCOUNTER 2024-08-14 08:27 | Emergency (ER) | payer OTHER, SELFPAY ==
--- NOTE | ~2024-08-14 | XR_ITS ---
X-ray, 3 view bilateral hands INDICATION: Bilateral hand pain TECHNIQUE: AP, lateral, oblique views of the extremity FINDINGS: Right hand: Joint spaces are preserved. Chronic corticated calcific density is present adjacent IP joint of the thumb. Faint calcific density is present on the radial side of the third proximal phalanx head. Faint amorphous calcific density is present at the ulnar head of the fourth proximal phalanx and ulnar base of the fourth proximal phalanx. No fractures identified. No erosions are seen. Left hand: Joint spaces are preserved. Faint amorphous calcific density is present along the ulnar side of the third proximal phalanx head. Faint linear calcification is present on the radial side of the head of the fourth proximal phalanx. There is chronic nonunion of ulnar styloid fracture. XR/XR Hand Vincent 2V IMPRESSION: Small calcific densities in the fingers as detailed above are probably chronic, however, correlate for evidence of acute avulsion fracture or calcific tendinitis. Electronically signed by: Prieto Hooks MD 08/14/2024 10:38 AM EDT
[2024-08-14 08:36] VITALS: BP 145/95; PULSE 100; RESP 20; TEMP 36.8; O2SAT 98; BMI 27.8
--- NOTE | 2024-08-14 09:26 | ED.EXTPRO ---
HPI - Extremity Problem General Chief complaint: Extremity Injury, Upper Stated complaint: Pain both hands Time Seen by Provider: 08/14/24 09:26 Source: patient Mode of arrival: ambulatory Limitations: no limitations History of Present Illness ED Provider: Vivek Sanyd PA-C HPI Narrative: 59-year-old female with medical history of COPD, asthma, HTN, IDC of right breast s/p lumpectomy 2021, presents to the ED today due to chronic bilateral hand pain. Patient states her left hand has chronic 3rd finger trigger finger. Went to urgent Care 2 months ago due to pain who was supposed to refer her to hand specialist which was never done. Patient states right hand with numbness and tingling up to the arm worse at night has been going on for 1 year. Had a nerve conduction test here at [facility] which was normal, they recommended her to wear nightly wrist braces but she has not been doing so. She states she came today due worsening tingling of the right arm. She has not taken any medications to manage the pain. Denies chest pain, shortness of breath, headache, visual changes, abdominal pain, urinary symptoms, diarrhea, black/tarry stool. MD Complaint: extremity pain (Bilateral hands) Onset (ago): month(s) Pain Consistency: constant Location: left and right Quality: burning and aching Radiation: proximal (Proximal right arm) Relieving factors: nothing Exacerbating factors: other (Sleeping) Associated symptoms: denies other symptoms Related Data Home Medications ?Medication ?Instructions ?Recorded ?Confirmed budesonide-formoterol HFA 160 1 puff inhalation BID 07/20/21 04/09/24 mcg-4.5 mcg/actuation aerosol inhaler (Symbicort) albuterol sulfate 90 mcg/actuation 1 puff inhalation Q4H PRN 01/03/22 04/09/24 aerosol inhaler Shortness Of Breath cetirizine 10 mg tablet 10 mg PO DAILY 01/03/22 04/09/24 lisinopril 10 mg tablet 20 mg PO DAILY 01/03/22 04/09/24 tamoxifen 20 mg tablet 20 mg PO DAILY 01/03/22 06/26/23 anastrozole 1 mg tablet 1 mg PO DAILY 04/09/24 04/09/24 Previous Rx's ?Medication ?Instructions ?Recorded albuterol sulfate 2.5 mg/3 mL 2.5 mg (3 mL) inhalation Q4H PRN 01/29/23 (0.083 %) solution for nebulization shortness of breath or wheezing 30 days #180 mL ipratropium bromide 42 mcg (0.06 2 spray intranasal TID-QID PRN 04/09/24 %) nasal spray allergy symptoms #15 mL mepolizumab 100 mg/mL subcutaneous 100 mg subcut Q4W 28 days #1 mL 05/08/24 auto-injector (Nucala) naproxen 250 mg tablet 250 mg PO BID 7 days #14 tabs 08/14/24 Allergies Allergy/AdvReac Type Severity Reaction Status Date / Time No Known Allergies Allergy Verified 08/14/24 08:41 Review of Systems Review of Systems: CONST: Negative for fever, body aches and chills. HENT: Negative for neck pain/stiffness, headache, congestion, sore throat, swelling. EYES: Negative for discharge/pain or vision changes. RESP: Negative for cough/hemoptysis and shortness of breath. CV: Negative chest pain, difficulty breathing, palpitations. ABD: Negative pain, nausea, vomiting. : Negative increase frequency, dysuria, blood in urine or stool. MUSC: Negative for muscle aches, edema. POS L hand 3rd finger pain (chronic trigger finger), R hand pain, numbness/tingling up to shoulder (chronic osteoarthritis of right shoulder) SKIN: Negative rash, lesions/sores. NEURO: Negative headache, dizziness, weakness. Yes all other systems are reviewed and are negative PMFSH Past Medical History Attestation statement: The following information was validated with the patient. Source: old records reviewed and nursing notes reviewed Medical History Tuberculosis COPD (chronic obstructive pulmonary disease) Asthma HTN (hypertension) Hx of breast cancer Invasive ductal carcinoma of breast Surgical History History of lumpectomy of right breast Social History Social History Household Members: Significant Other Alcohol intake: never Patient Tobacco Use Status: Never used Tobacco Advance Directives: No Advance Directives Information Provided: Yes Physical Exam Vital Signs: Vital Signs: Last Vital Signs Temp 980 F H 08/14/24 10:48 Pulse 99 08/14/24 10:48 Resp 16 08/14/24 10:48 BP 148/89 H 08/14/24 10:48 Pulse Ox 97 08/14/24 10:48 O2 Del Method Room Air 08/14/24 10:48 BMI result Body Mass Index 27.8 GENERAL APPEARANCE: ?AxOx4, generally well-appearing, no acute distress. HEENT: ?NC, AT. MMM. EOMI, clear conjunctiva, oropharynx clear. NECK: ?Supple without lymphadenopathy.? No stiffness or restricted ROM. HEART:? Normal rate and regular rhythm, normal S1/S1, no m/r/g LUNGS:? CTAB, moving air well. No crackles or wheezes are heard. ABDOMEN: ?Soft, nontender, nondistended with good bowel sounds heard. BACK: No CVAT, no obvious deformity. EXTREMITIES: ?Without cyanosis, clubbing or edema. mild TTP of R trapezius/ posterior shoulder, no edema, ecchymosis, overlying skin changes. Positive Phalen, left hand with 3rd trigger finger, full ROM, opposition intact, full extension/flexion intact. Strength 5/5 B/L, sensory intact. NEUROLOGICAL: ?Grossly nonfocal. Alert and oriented, moving all 4 extremities. Observed to ambulate with normal gait. Skin: ?Warm and dry without any rash. Medical Decision Making Medical Decision Making MDM Narrative: 59-year-old female with medical history of COPD, asthma, HTN, IDC of right breast s/p lumpectomy 2021, presents to the ED today due to chronic bilateral hand pain. Patient states her left hand has chronic 3rd finger trigger finger. Went to urgent Care 2 months ago due to pain who was supposed to refer her to hand specialist which was never done. Patient states right hand with numbness and tingling up to the arm worse at night has been going on for 1 year. Had a nerve conduction test here at [facility] which was normal, they recommended her to wear nightly wrist braces but she has not been doing so. VSS, no acute distress, nontoxic appearing. Physical exam shows a positive Phalen test, sensory intact B/L, full ROM, full opposition, 5/5 strength B/L- less liley nerve impingement. No overlying skin changes, ecchymosis, edema. Mild TTP over right trapezius, posterior shoulder. Patient had shoulder x-ray done at [facility] done 11/11/2023, which revealed glenohumeral osteoarthritis with osteophytes at the glenoid. Patient had nerve conduction study test done 07/12/2023 which was normal. She was encouraged to wear wrist splints at night but has not been doing so. Patient states she is not experiencing tingling right now of the right hand but when she does it is of her 3rd through 5th digits which is consistent with cubital tunnel syndrome. Will obtain B/L hand x-rays for referral to [facility] hand specialist. Will give B/L wrist splints for nighttime wear. We will prescribe 7 day course of b.i.d. naproxen for inflammation. Encourage patient to follow up with her PCP and placed a referral to hand specialist. At this time suspect that this is chronic right-sided glenohumeral osteoarthritis, with chronic left-sided 3rd digit trigger finger. And possible cubital/carpal tunnel syndrome. Course 10:47- right hand x-ray shows chronic calcific density of the adjacent IP joint of the thumb. Questionable acute avulsion fracture. Patient without TTP over this area. We will have her follow up with ortho/hand specialist. No acute fractures/dislocations. Differential Diagnosis Differential Diagnoses: The differential diagnosis associated with the presentation includes Carpal tunnel Cubital tunnel Trigger finger Hand fracture Osteoarthritis Nerve impingement Admission/Observation Consideration of admission/observation: Escalation of care including admission/observation considered Independent Interpretation I performed an independent interpretation of an: Plain X-Ray Interpretation: I have independently interpreted the x-ray of bilateral hands and agree with the radiologist's findings. Radiology Impression Discussion of test interpretation with radiology: I have reviewed the radiologist's reading. Radiologist Impression: X-ray, 3 view bilateral hands INDICATION: Bilateral hand pain TECHNIQUE: AP, lateral, oblique views of the extremity FINDINGS: Right hand: Joint spaces are preserved. Chronic corticated calcific density is present adjacent IP joint of the thumb. Faint calcific density is present on the radial side of the third proximal phalanx head. Faint amorphous calcific density is present at the ulnar head of the fourth proximal phalanx and ulnar base of the fourth proximal phalanx. No fractures identified. No erosions are seen. Left hand: Joint spaces are preserved. Faint amorphous calcific density is present along the ulnar side of the third proximal phalanx head. Faint linear calcification is present on the radial side of the head of the fourth proximal phalanx. There is chronic nonunion of ulnar styloid fracture. XR/XR Hand Vincent 2V IMPRESSION: Small calcific densities in the fingers as detailed above are probably chronic, however, correlate for evidence of acute avulsion fracture or calcific tendinitis. Electronically signed by: Prieto Hooks MD 08/14/2024 10:38 AM EDT RP Dictated By: Prieto Hooks MD Signed By: <Electronically signed by Prieto Hooks MD in OV> External Record Review External record reviewed: Inpatient record, Office record and Outpatient record Chronic Conditions Patient?s care impacted by: Hypertension and Other (IDC) Discharge Plan Discharge Clinical Impression: Cubital tunnel syndrome on right Osteoarthritis Qualifiers: Osteoarthritis location: shoulder Osteoarthritis type: unspecified Laterality: right Qualified Code(s): M19.011 - Primary osteoarthritis, right shoulder Trigger finger of left hand Qualifiers: Trigger finger location: middle finger Qualified Code(s): M65.332 - Trigger finger, left middle finger Patient Disposition: Home, Self-Care Instructions: Osteoarthritis (ED), Trigger Finger (ED), Paresthesia (ED) Additional Instructions: You were evaluated in the ED today due to right and left hand pain. This pain has been chronic for you, you had an x-ray done of your right shoulder 11/11/2023 which showed bony growths and osteoarthritis of the shoulder. You had a nerve conduction test done 07/12/2023 which was normal, and recommended you to wear nightly wrist splints. X-rays of both of your hands were done today see you can take these to the hand specialists for treatment. I have placed a referral for you to the hand specialists, and orthopedic doctors for further evaluation and management of your pain. You have to call these offices and set up your appointments. They will not call you I have prescribed you a 7 day course of naproxen which is an anti-inflammatory drug which will help with the inflammation and pain you are experiencing. Please finish the entire course of this medication, and take with food. You can take Tylenol every 6 hours to further manage your pain. Please return to the emergency department if you experience fevers over 100.4?, worsening pain of your hands, inability or difficulty moving your hands or arms, loss of sensation of your hands or arms, or any other new/worsening/concerning symptoms. [facility] hand specialist/orthopedics Dr. Brianna Haile (hand)/ Dr. Darren De La Cruz (orthopedics) [address] [place] [address] Prescriptions: New naproxen 250 mg tablet 250 mg PO BID 7 Days Qty: 14 0RF No Action Nucala 100 mg/mL auto-injector 100 mg subcut Q4W 28 Days Qty: 1 12RF budesonide-formoterol [Symbicort] 160-4.5 mcg/actuation HFA aerosol inhaler 1 puff inhalation BID albuterol sulfate 90 mcg/actuation HFA aerosol inhaler 1 puff inhalation Q4H PRN (Reason: Shortness Of Breath) cetirizine 10 mg tablet 10 mg PO DAILY tamoxifen 20 mg tablet 20 mg PO DAILY lisinopril 10 mg tablet 20 mg PO DAILY albuterol sulfate 2.5 mg /3 mL (0.083 %) solution for nebulization 2.5 mg inhalation Q4H PRN (Reason: shortness of breath or wheezing) 30 Days Qty: 180 6RF anastrozole 1 mg tablet 1 mg PO DAILY ipratropium bromide 42 mcg (0.06 %) spray,non-aerosol 2 spray intranasal TID-QID PRN (Reason: allergy symptoms) Qty: 15 0RF Rx Instructions: administer into each nostril Referrals: [facility] Orthopedic Surgeons [Provider Group] (r shoulder xray with osteophytes/glenohumeral osteoarthritis. PT with increasing pain of R shoulder) Asia Forte FNP [Primary Care Provider] - Brianna Haile MD [Physician] - (PT with nerve conduction study 07/12/23. Having persistent/worsening numbness/tingling of R hand. L hand with 3rd digit trigger finger. B/L hand x-rays done in ED to aid in her evaluation ) Interventions: ED Discharge Assessment Last Done: 08/14/24 10:48 Discharge Date/Time: 08/14/24 10:49 Print Language: Lithuanian
[2024-08-14 09:35] VITALS: BP 148/89; PULSE 99; RESP 16; O2SAT 97
--- OUTSIDE RECORDS SUMMARY | 2024-08-14 09:57 | XMS_ITS ---
Author Organization [facility] Address [address] [place] [address] Care Team Providers Care Swimming Instructor Name Role Phone CARLEY FELIZ, JASSON Primary Care Provider Richard Graham Jr Unavailable Allergies No Known Allergies REASON FOR VISIT patient presents today for screening colonoscopy Medications Medication SIG (Take, Route, Frequency, Duration) Notes Start Date End Date Status Cetirizine HCl 10 MG TAKE 1 TABLET BY MO UTH EVERY DAY Oral for 90 J302,Unavailabl e Active Nucala 100 MG/ML Subcutaneous for 28 Active Tamoxifen Citrate 20 MG TAKE 1 TABLET BY MOUTH EVERY DAY Oral for 90 Active MiraLax (colon prep) 17 GM/SCOOP mixed with Gatorade or Crystal Light Orally begin at 5:00 p.m. the day before the procedure for 1 day 05/22/2023 Active Ventolin HFA 108 (90 Base) MCG/ACT INHALE 2 PUFFS BY MOUTH EVERY 4 HOURS NEEDED FOR WHEEZING OR SHORTNESS OF BREATH Inhalation for 17 J449,Unavailabl e Active Symbicort 160-4.5 MCG/ACT INHALE 2 PUFFS BY MOUTH TWICE DAILY IN THE MORNING AND IN THE EVENING RINSE MOUTH AFTER USING. Inhalation for 90 J449,Unavailabl e Active Albuterol Sulfate (2.5 MG/3ML) 0.083% INHALE 1 AMPULE USING A NEBULIZER EVERY 4 HOURS NEEDED SHORTNESS OF BREATH FOR WHEEZING Inhalation for 9 Active Lisinopril 20 MG TAKE 1 TABLET BY GONZALO TH EVERY DAY IN THE MORNING Oral for 90 Active Social History Tobacco Use: Social History Observation Description Date Details (start date - stop date) Never Smoker NA - NA Tobacco Use/Smoking Question Answer Notes Patient is a nonsmoker Alcohol Screen Question Answer Notes Did you have a drink containing alcohol in the p ast year? No Points 0 Interpretation Negative Problems Problem Type SNOMED Code ICD Code Onset Dates Problem Status W/U Status Risk Notes Problem 610443576 Colon cancer screening (Z12.11) Active confirmed Problem [id number] Encounter for other preprocedural examination (Z01.818) Active confirmed Vital Signs Temperature 96.8 degrees Fahrenheit 05/22/19 24 Blood pressure systolic 000 mm Hg 05/22/19 24 Blood pressure diastolic 00 mm Hg 024 Height 5 ft 5 in in 05/22/2023 Weight 163 lb 2 oz lbs 05/22/2023 BMI 27.14 kg/m2 05/22/2023 Encounters Encounter Location Date Provider Diagnosis [facility] [address] [place] [address] 05/22/2023 Richard Rubio Jr Colon cancer screening Z12.11 and Encounter for other preprocedural examination Z01.818 Assessments Encounter Date Diagnosis (ICD Code) Assessment Notes Treatment Notes Treatment Clinical Notes Section Notes 05/22/2023 Colon cancer screening (ICD-10 - Z12.11) Colon cancer screening material was printed We discussed colonoscopy today. We discussed risks and benefits of the procedure today. She understands these and agrees to proceed. This will be scheduled at her convenience. 05/22/2023 Encounter for other preprocedural examination (ICD-10 - Z01.818) We discussed colonoscopy today. We discussed risks and benefits of the procedure today. She understands these and agrees to proceed. This will be scheduled at her convenience. Plan Of Treatment Medication Medication Name Sig Start Date Stop Date Notes MiraLax (colon prep) 17 GM/SCOOP mixed with Gatorade or Crystal Light Orally begin at 5:00 p.m. the day before the procedure for 1 day 05/22/2023 Treatment Notes Assessment Notes Colon cancer screening Colon cancer scre ening material was printed Future Test Test Name Order Date COLONOSCOPY 05/22/2023 Next Appt Details Follow Up: 1 Year, Reason: Progress Notes * HODAN OATESOB: [birth year] (58 yo F)Acc No.[id number]:05/22/2023 Progress Notes Patient:?KIAN OATES Provider:?Richard Rubio MD :1965???Age:58 Y???Sex:Female D ate:05/22/2023 Address:[address] [place] [address] Pcp:JASSON HOWE MD Subjective: * Chief Complaints: * ???1. Patient presents today for screening colonoscopy. * HPI: ???New symptom(s):? Kian is a pleasant 58-year-old woman seen today for her first preoperative colonoscopy visit. She has some symptoms of gas, mostly rectal, and some constipation. She has no rectal bleeding or change in her bowel habits. She has not undergone previous colonoscopy. * ROS:?General/Constitutional:?Change in appetite?denies.?Fatigue?denies.?ENT:?Patient denies?difficulty swallowing.?Respiratory:?Patient denies?shortness of breath.?Cardiovascular:?Patient denies?chest pain.?Gastrointestinal:?Comments?See HPI for details.?Genitourinary:?Difficulty urinating?denies.?Incontinence?denies.?Musculoskeletal:?Patient denies?muscle aches.?Skin:?Patient denies?pruritis.?Neurologic:?Patient denies?low back pain.?Psychiatric:?Patient denies?mental or physical abuse.? * Medical History:?Hypertensio n, Asthma/COPD, history of TB, treated, Breast cancer right lumpectomy, radiation therapy. * Surgical History:?Right lump ectomy 08/23. * Family History:?Father: dece ased, diagnosed with HTN (hypertension).?Mother: .? No family history of colon cancer or liver cancer. * Social History:?Tobacco Use:?Tobacco Use/Smoking?Patient is a?nonsmoker.?Drugs/Alcohol:?Alcohol Screen?Did you have a drink containing alcohol in the past year??No,?Points?0,?Interpretation?Negative.?Miscellaneous:?Marital status: . * Medications:?Taking Lisinopr il 20 MG Tablet TAKE 1 TABLET BY MOUTH EVERY DAY IN THE MORNING Oral , Taking Ventolin HFA 108 (90 Base) MCG/ACT Aerosol Solution INHALE 2 PUFFS BY MOUTH EVERY 4 HOURS NEEDED FOR WHEEZING OR SHORTNESS OF BREATH Inhalation , Notes: J449,Unavailable, Taking Tamoxifen Citrate 20 MG Tablet TAKE 1 TABLET BY MOUTH EVERY DAY Oral , Taking Nucala 100 MG/ML Solution Auto-injector Subcutaneous , Taking Cetirizine HCl 10 MG Tablet TAKE 1 TABLET BY MOUTH EVERY DAY Oral , Notes: J302,Unavailable, Taking Symbicort 160-4.5 MCG/ACT Aerosol INHALE 2 PUFFS BY MOUTH TWICE DAILY IN THE MORNING AND IN THE EVENING RINSE MOUTH AFTER USING. Inhalation , Notes: J449,Unavailable, Taking Albuterol Sulfate (2.5 MG/3ML) 0.083% Nebulization Solution INHALE 1 AMPULE USING A NEBULIZER EVERY 4 HOURS NEEDED SHORTNESS OF BREATH FOR WHEEZING Inhalation , Medication List reviewed and reconciled with the patient * Allergies:?N.K.D.A. Objective: * Vitals:?Wt: 163 lb 2 oz, Ht: 5 ft 5 in, BMI:27.14 Index, BP: 000/00 mm Hg, Temp: 96.8. * Examination: ???General Examination: ?GENERAL APPEARANCE:?in no acute distress.?HEAD:?normocephalic.?EYES:?sclera non-icteric.?ORAL CAVITY:?mucosa moist.?NECK/THYROID:?no lymphadenopathy.?SKIN:?anicteric.?HEART:?S1, S2 normal, no murmurs.?LUNGS:?clear to auscultation bilaterally.?CHEST:?normal shape and expansion.?ABDOMEN:?soft, nontender, nondistended, bowel sounds present, no organomegaly .?EXTREMITIES:?no clubbing, cyanosis, or edema.?PSYCH:?cognitive function intact.? Assessment: * Assessment: 1.?Encounter for other prepr ocedural examination - Z01.818 (Primary)?2.?Colon cancer screening - Z12.11? We discussed colonoscopy tomalathi ay. We discussed risks and benefits of the procedure today. She understands these and agrees to proceed. This will be scheduled at her convenience. Plan: * Treatment: Notes: Colon cancer screening material was printed?? * Preventive Medicine:? ??Counseling:?Care goal follow-up plan:?Above Normal BMI Follow-up?Giving encouragement to exercise,?BMI management provided?Yes.? * Follow Up:?1 Year * * Sign off status: Completed true * Provider:?Richard Rubio MD Date:?0 05/22/2023 Generated for Leia sandoval/Mojgan/eTransmitting on:?08/14/2024 09:57 AM EDT History and Physical Notes * HPI (History of Present Illness) Category Sub-Category Detail Notes Category Not es New symptom(s) Kian is a pleasant 58-year-old woman seen today for her first preoperative colonoscopy visit. She has some symptoms of gas, mostly rectal, and some constipation. She has no rectal bleeding or change in her bowel habits. She has not undergone previous colonoscopy. Examination Category Sub-Category Detail Notes Category Not es General Examination GENERAL APPEARANCE: in no acute di stress HEAD: normocephalic EYES: sclera non-icteric NECK/THYROID: no lymphadenopathy HEART: S1, S2 normal, no mu rmurs CHEST: normal shape and exp ansion LUNGS: clear to auscultatio n bilaterally ABDOMEN: soft, nontender, non distended, bowel sounds present, no organomegaly SKIN: anicteric EXTREMITIES: no clubbing, cyanosi s, or edema PSYCH: cognitive function i ntact ORAL CAVITY: mucosa moist
--- NOTE | 2024-08-14 10:37 | PC.NURSE ---
Bilat wrist splints provided.
[2024-08-14 10:48] VITALS: BP 148/89; PULSE 99; RESP 16; TEMP 526.6; TEMP 980; O2SAT 97
== END 2024-08-14 10:49 | disposition home or self-care (01) ==
PROVIDERS: Emergency Provider Emergency Medicine; PCP Registered Nurse
DX: M65.332 Trigger finger, left middle finger (principal); M19.011 Primary osteoarthritis, right shoulder; M79.642 Pain in left hand; M79.641 Pain in right hand; R20.0 Anesthesia of skin; R20.2 Paresthesia of skin; I10 Essential (primary) hypertension
CPT/HCPCS: 73120; 99283; 99284

== ENCOUNTER → 2024-08-14 09:52 | Outpatient (BNV) | payer OTHER, SELFPAY | PROVIDERS: Emergency Provider Emergency Medicine; PCP Registered Nurse; Visit Provider Radiology Diagnostic Radiology | DX: M65.241 Calcific tendinitis, right hand (principal); M65.242 Calcific tendinitis, left hand | CPT/HCPCS: 73120 ==

== ENCOUNTER 2024-08-26 15:26 | Outpatient (AMB) | payer OTHER, SELFPAY ==
--- OUTSIDE RECORDS SUMMARY | 2023-06-28 07:40 | XMS_ITS ---
Author Organization [facility] Address [address] [place] [address] Care Team Providers Care Metal Fabrication Supervisor Name Role Phone CARLEY FELIZ, JASSON Primary Care Provider Richard Graham Jr [phone] REASON FOR VISIT screening Encounters Encounter Location Date Provider Diagnosis [facility] [place] [address] [place] [id number] 06/28/2023 Richard Rubio Jr Encounter for screening colonoscopy Z12.11 and Colon polyps K63.5 Assessments Encounter Date Diagnosis (ICD Code) Assessment Notes Treatment Notes Treatment Clinical Notes Section Notes 06/28/2023 Encounter for screening colonoscopy (ICD-10 - Z12.11) 06/28/2023 Colon polyps (ICD-10 - K63.5) Plan Of Treatment No Information Progress Notes * REBECCA OATESMITCHEDOB: [birth year] (59 yo F)Acc No.[id number]:06/28/2023 COLON WITH MAC Patient: KIAN LEIGH Provider: Denise Rubio MD :1965 A ge:58 Y S ex:Female Date:06/28/2023 Address:[address] [place], [place] [phone] Pcp:JASSON HOWE MD Subjective: * Chief Complaints: [...] 06/28/2023 Generated for Leia sandoval/Mojgan/Robertoitting on: 0 08/26/2024 06:15 PM EDT
--- NOTE | 2024-08-26 15:30 | MHC.OFFVIS ---
Vital Signs 08/26/24 15:37 Height 5 ft 4 in Weight 162 lb BMI 27.8 Intake Visit Reasons: PAIN MANAGEMENT NURSE PRACTITIONER-Bilat hand pain Intake Note: Alva is a 59 year old right hand dominant female who presents today for a new patient evaluation of bilateral hand pain. Patient reports intermittent pain that presented about a year ago, stating her pain has been increasingly getting worse the past few months. Her pain is worse in her left hand and has locking and catching in her middle finger. She has pain that is located in her MF, PF, and thumb. As well as her palm that radiates down her forearm towards her elbow. As for her right hand she wakes up with mild numbness and tingling. Finds some relief with naproxen. States having an EMG however she was not able to finish the test. She mentions about 2 year ago she was getting something from her closet when she accidently his her left palm on a corner. Allergies No Known Allergies Allergy (Verified 08/26/24 15:43) HPI HPI PAIN MANAGEMENT NURSE PRACTITIONER-Bilat hand pain: Details: Alva is a 59 year old right hand dominant female who presents today for a new patient evaluation of bilateral hand pain. Patient reports intermittent pain that presented about a year ago, stating her pain has been increasingly getting worse the past few months. Her pain is worse in her left hand and has locking and catching in her middle finger. She has pain that is located in her MF, PF, and thumb. As well as her palm that radiates down her forearm towards her elbow. As for her right hand she wakes up with mild numbness and tingling. Finds some relief with naproxen. States having an EMG however she was not able to finish the test. She mentions about 2 year ago she was getting something from her closet when she accidently his her left palm on a corner. [facility] Medical History (Updated 09/03/24 @ 08:31 by DALJIT Mina) Tuberculosis COPD (chronic obstructive pulmonary disease) Asthma HTN (hypertension) Hx of breast cancer Invasive ductal carcinoma of breast Surgical History (Updated 08/26/24 @ 15:36 by FELICIA Green) Hx of eye surgery History of lumpectomy of right breast Social History (Updated 08/26/24 @ 15:37 by FELICIA Green) Household Members: Significant Other Alcohol intake: never Patient Tobacco Use Status: Never used Tobacco Current occupational status: unemployed Current occupation: right hand dominant Female Reproductive History Menstrual Age of Menarche: 18 Review of Systems Const All systems reviewed & are unremarkable except as noted in HPI and below Physical Exam Vital Signs: BMI result Body Mass Index 27.8 Extrem Other: Neuro: Decreased sensation in the median nerve distribution of bilateral hands. Normal sensation in the tips of all digits of the ulnar nerve distribution of bilateral hands No thenar or intrinsic wasting. Good APB muscle firing and good finger cross. Vascular: Capillary refill brisk. ROM: Patient can make a fist and extend all their digits. Skin: No lacerations or abrasions noted. General: No ecchymosis. No erythema or evidence of infection. Assessment & Plan Assessment & Plan (1) Numbness and tingling in both hands: Code(s): R20.0 - Anesthesia of skin; R20.2 - Paresthesia of skin Category: Medical Plan 1. Numbness, tingling, pain of both hands Symptoms constant, daily, worse at night EMG and nerve conduction study ordered to assess the health of the nerves of bilateral upper extremities Patient states that she has been unable to tolerate this study previously, but she will try her best this time Follow-up after EMG and nerve conduction study for results review and discussion of further treatment if indicated Patient is amenable to this plan Orders: Orders NE nerve conduction velocity 08/26/24 R20.0 - Anesthesia of skin, R20.2 - Paresthesia of skin NE electromyogram (EMG) 08/26/24 R20.0 - Anesthesia of skin, R20.2 - Paresthesia of skin Coding Level of Care Code New Pt Level 3 (74351) Diagnoses Numbness and tingling in both hands R20.0; R20.2
[2024-08-26 15:37] VITALS: BMI 27.8
== END 2024-08-26 15:59 | disposition home or self-care (01) ==
LOC: HO.HOS 15:27
PROVIDERS: PCP Registered Nurse
DX: R20.0 Anesthesia of skin (principal); R20.2 Paresthesia of skin
CPT/HCPCS: 99203

== ENCOUNTER → 2024-08-26 15:26 | Outpatient (BNVA) | payer OTHER, SELFPAY | PROVIDERS: PCP Registered Nurse | DX: R20.0 Anesthesia of skin (principal); R20.2 Paresthesia of skin | CPT/HCPCS: 99202 ==

== ENCOUNTER 2024-10-06 13:21 | Outpatient (AMB) | payer OTHER, SELFPAY ==
--- OUTSIDE RECORDS SUMMARY | 2023-06-28 07:40 | XMS_ITS ---
Author Organization [facility] Address [address] [place] [address] Care Team Providers Care Exceptional Children Teacher Name Role Phone CARLEY FELIZ, JASSON Primary Care Provider Richard Graham Jr [phone] REASON FOR VISIT screening Encounters Encounter Location Date Provider Diagnosis [facility] [place] [address] [place] [phone] 06/28/2023 Richard Rubio Jr Encounter for screening colonoscopy Z12.11 and Colon polyps K63.5 Assessments Encounter Date Diagnosis (ICD Code) Assessment Notes Treatment Notes Treatment Clinical Notes Section Notes 06/28/2023 Encounter for screening colonoscopy (ICD-10 - Z12.11) 06/28/2023 Colon polyps (ICD-10 - K63.5) Plan Of Treatment No Information Progress Notes * REBECCA OATESMITCHEDOB: [birth year] (59 yo F)Acc No.[id number]:06/28/2023 COLON WITH MAC Patient: KIAN LEIGH Provider: Denise Rubio MD :1965 A ge:58 Y S ex:Female Date:06/28/2023 Address:[address] [place], [place] [phone] Pcp:JASSON HOWE MD Subjective: * Chief Complaints: [...] 06/28/2023 Generated for Leia sandoval/Mojgan/Robertoitting on: 0 10/06/2024 02:00 PM EDT
--- NOTE | 2024-10-06 13:29 | MHC.OFFVIS ---
Vital Signs 10/06/24 13:30 Height 5 ft 4 in Weight 162 lb BMI 27.8 Handedness Right Intake Visit Reasons: OV-LT MF trigger-interested cortisone inj. Intake Note: Alva is a 59 year old right hand dominant female who presents today for a new problem visit complaining of left middle finger locking and catching that began about 6 months ago. Patient states she has been reading on it and is interested on a cortisone injection today. Patient has an EMG scheduled for 10/16/24. Allergies No Known Allergies Allergy (Verified 10/06/24 13:30) HPI HPI OV-LT MF trigger-interested cortisone inj.: Details: Alva is a 59 year old right hand dominant female who presents today for a new problem visit complaining of left middle finger locking and catching that began about 6 months ago. Patient states she has been reading on it and is interested on a cortisone injection today. Patient has an EMG scheduled for 10/16/24 [facility] Medical History (Updated 10/06/24 @ 17:42 by DALJIT Mina) Tuberculosis COPD (chronic obstructive pulmonary disease) Asthma HTN (hypertension) Hx of breast cancer Invasive ductal carcinoma of breast Surgical History (Updated 08/26/24 @ 15:36 by FELICIA Green) Hx of eye surgery History of lumpectomy of right breast Social History (Updated 08/26/24 @ 15:37 by FELICIA Green) Household Members: Significant Other Alcohol intake: never Patient Tobacco Use Status: Never used Tobacco Current occupational status: unemployed Current occupation: right hand dominant Female Reproductive History Menstrual Age of Menarche: 18 Review of Systems Const All systems reviewed & are unremarkable except as noted in HPI and below Physical Exam Vital Signs: BMI result Body Mass Index 27.8 Extrem Other: Patient is alert, oriented, and in no acute distress. Neuro: Normal sensation of the tips of all digits of the bilateral hand at this time Vascular: Cap refill brisk Pain: Tenderness to palpation of the A1 anastasiia of the left middle finger Pain associated with locking catching of the left middle finger ROM: Patient is able to make a closed fist and extend all digits of the left hand fully, but there is visible and palpable locking and catching of the left middle finger Skin: No lacerations or abrasions. General: No ecchymosis, erythema, or evidence of infection. Psych: Appears grossly normal Affect normal Attitude cooperative Office Procedures AMB Tendon Injection Tendon Injection [id number] Tendon Sheath Injection All charges added?: Procedure code (CPT) selection complete Assessment & Plan Assessment & Plan (1) Trigger finger, left middle finger: Code(s): M65.332 - Trigger finger, left middle finger Category: Medical Plan 1. Trigger finger, left middle finger Patient is educated about this condition Patient is educated about the treatment options available Patient would like to proceed with steroid injection The risks and benefits of a steroid injection including but not limited to risk of damage to blood vessels, nerves, tendons, infection, skin bleaching, failure to improve symptoms, increased pain, and possible need for further injections or other intervention were discussed with the patient and the patient wishes to proceed with the steroid injection. Once consent was obtained, I sterilely prepped the area over the A1 anastasiia of the flexor tendon sheath of the left middle finger. I then injected the flexor tendon sheath with a combination of 1 mL of dexamethasone (4mg/ml), and 1% lidocaine. The patient tolerated the procedure well with no complications. If the patient continues to have locking and catching 4-6 weeks following this injection, they may call to schedule appointment to discuss alternative treatment options Follow-up prn Coding Level of Care Code New Pt Level 3 (15959) Diagnoses Trigger finger, left middle finger M65.332 CPT Codes Tendon Injection - Tendon Injection 1: [id number] Tendon Sheath Injection ([id number])
[2024-10-06 13:30] VITALS: BMI 27.8
--- OUTSIDE RECORDS SUMMARY | 2024-10-06 14:00 | XMS_ITS | Clinical Summary ---
Author Organization [facility] Address [address] [place] [id number] Phone Care Team Providers Care Environmental Program Manager Name Role Phone Pcp, Unknown Primary Care Provider Unavailabl e Allergies No known active allergies Medications loratadine (CLARITIN) 10 mg tablet Take 10 mg by mouth daily. Active doxycycline monohydrate (MONODOX) 100 MG capsule Take 1 capsule (100 mg total) by mouth 2 (two) times a day. 14 capsule 06/18/2022 Active predniSONE (DELTASONE) 20 MG tablet Take 1 tablet (20 mg total) by mouth daily with breakfast. 7 tablet 06/18/2022 Active Social History Tobacco Use Types Packs/Day Years Used Date Smoking Tobacco: Never Alcohol Use Standard Drinks/Week Comments Never 0 (1 standard drink = 0.6 oz pur e alcohol) Education Answer Date Recorded Are you interested in more education? Not on angelica e 06/30/2022 Are you concerned about learning? Not on file 06/30/2022 No 06/30/2022 No 06/30/2022 Digital Access Answer Date Recorded No 07/31/2022 No 07/31/2022 Reliable internet access at home? Not on file 07/31/2022 Device with a working camera? Not on file Intimate Partner Violence Answer Date R ecorded Are you denied basic needs s uch as food, clothing, or medical care? No 06/18/2022 In the past 12 months have y ou been in a relationship with a person who hurts, threatens, or tries to control you? No 06/18/2022 Are you denied basic needs s uch as food, clothing, or medical care? No 06/18/2022 In the past 12 months have y ou been in a relationship with a person who hurts, threatens, or tries to control you? No 06/18/2022 Comments Unknown Sex and Gender Information Value Date Recorded Sex Assigned at Female 07/03/2021 12:33 PM EDT Legal Sex Female 12:22 PM EDT Gender Identity Female 07/03/2021 12:33 PM EDT Sexual Orientation Straight 07/03/2021 12 :33 PM EDT Last Filed Vital Signs Vital Sign Reading Time Taken Comments Blood Pressure 157/93 06/18/2022 9:01 PM EDT Pulse 94 06/18/2022 9:01 PM EDT Temperature 37.4 C (99.3 F) 06/18/2022 9:01 PM EDT Respiratory Rate 18 06/18/2022 9:01 PM EDT Oxygen Saturation 96% 06/18/2022 9:01 PM EDT Inhaled Oxygen Concentration - - Weight 63.5 kg (140 lb) 06/18/2022 6:28 PM EDT Height 165.1 cm (5' 5 ) 06/18/2022 6:28 PM EDT Body Mass Index 23.3 06/18/2022 6:28 PM EDT Plan of Treatment Health Maintenance Due Date Last Done Comments LIPID PANEL 1967 DEPRESSION SCREENING 1979 HEPATITIS C SCREENING 05/01/1985 HIV ONE-TIME SCREENING (18-65 YEARS) 05/01/1985 PAP SMEAR 05/01/1988 SMOKING STATUS SCREENING (Once After 26 Yrs) 05/01/1993 COLOGUARD 2012 COLONOSCOPY 2012 COLORECTAL CANCER SCREENING 2012 FIT TEST 2012 FOBT 2012 SIGMOIDOSCOPY 2012 VIRTUAL COLONOSCOPY 2012 PNEUMOCOCCAL VACCINES (50+ years) (1 of 1 - PCV) 05/01/2017 ZOSTER VACCINES (1 of 2) 05/01/2017 MAMMOGRAM 08/17/2023 08/16/2021, 07/02, 07/20/2021, Additional history exists COVID-19 VACCINE (2 - season) 2023 02/06/2021 Adult Td,Tdap Booster 10/11/2031 10/10/2021 HEPATITIS A VACCINES Aged Out No long er eligible based on patient's age to complete this topic HIB VACCINES Aged Out No longer eligi ble based on patient's age to complete this topic MENINGOCOCCAL VACCINES (ACWY) Aged Out No longer eligible based on patient's age to complete this topic MENINGOCOCCAL VACCINES (B) Aged Out N o longer eligible based on patient's age to complete this topic Medical Devices [place] [address] [place] [address] [facility] [address] [facility] [place] [address] [place] [address] [place] [address] [place] [address] [facility] Care Teams Environmental Program Manager Relationship Specialty Start Date End Date Pcp, Unknown PCP - General 07/03/21 Additional Source Comments The information contained in this document represents components of the legal health record. It is not the complete legal health record.[facility]
== END 2024-10-06 14:05 | disposition home or self-care (01) ==
LOC: HO.HOS 13:22
PROVIDERS: PCP Registered Nurse
DX: M65.332 Trigger finger, left middle finger (principal)
CPT/HCPCS: 20550; 99213

== ENCOUNTER → 2024-10-06 13:21 | Outpatient (BNVA) | payer OTHER, SELFPAY | PROVIDERS: PCP Registered Nurse | DX: M65.332 Trigger finger, left middle finger (principal) | CPT/HCPCS: 20550; 99212; J1100; J2003 ==

== ENCOUNTER 2024-10-08 13:07 | Outpatient (AMB) | payer OTHER, SELFPAY ==
--- OUTSIDE RECORDS SUMMARY | 2023-06-28 07:40 | XMS_ITS ---
Author Organization [facility] Address [address] [place] [address] Care Team Providers Care Outfitter Cabin Name Role Phone CARLEY FELIZ, JASSON Primary Care Provider Richard Graham Jr REASON FOR VISIT screening Encounters Encounter Location Date Provider Diagnosis [facility] [place] [address] [place] [id number] 06/28/2023 Richard Rubio Jr Encounter for screening colonoscopy Z12.11 and Colon polyps K63.5 Assessments Encounter Date Diagnosis (ICD Code) Assessment Notes Treatment Notes Treatment Clinical Notes Section Notes 06/28/2023 Encounter for screening colonoscopy (ICD-10 - Z12.11) 06/28/2023 Colon polyps (ICD-10 - K63.5) Plan Of Treatment No Information Progress Notes * REBECCA OATESMITCHEDOB: [birth year] (59 yo F)Acc No.[id number]:06/28/2023 COLON WITH MAC Patient: KIAN LEIGH Provider: Denise Rubio MD :1965 A ge:58 Y S ex:Female Date:06/28/2023 Address:[address] [place], [place] [id number] Pcp:JASSON HOWE MD Subjective: * Chief Complaints: * 1 . Screening. * Medical History: Objective: * Vitals: Assessment: * Assessment: 1. E ncounter for screening colonoscopy - Z12.11 (Primary) 2 . C olon polyps - K63.5 Plan: * Treatment: * Procedure Codes: 4 5380 COLONOSCOPY AND BIOPSY * * The named appointment provid er may or may not be the originator of this progress note, and it is not deemed complete until electronically signed by the appointment provider. Sign off status: Pending * Provider: Denise Rubio MD Date: 0 06/28/2023 Generated for Leia sandoval/Mojgan/Robertoitting on: 0 10/08/2024 01:10 PM EDT
--- OUTSIDE RECORDS SUMMARY | 2024-10-08 13:11 | XMS_ITS | Encounter Summary ---
Author Organization [employer] Address [address] [facility] [address] [place] [address] Care Team Providers Care Laboratory Operations Coordinator Name Role Phone Tiffany Amaro MD Primary Care Provider Asia Parker Primary Care Provider [phone] Encounter Details Date Type Department Care Team (Late st Contact Info) Description 11/20/2021 Abstract [facility] MEDICINE [address] [place] [address] Provider, MD Felisa Social History Tobacco Use [...] Description 10/19/2024 2:30 PM EDT Office Visit [facility] CHC MED & PEDS [address] [place] [address] Asia Forte FNP [address] [place] [address] 12/14/2024 2:00 PM EDT Office Visit [facility] OPTOMETRY [address] [place] [address] Bayron, Sabrina, OD [address] [place] [address] documented as of this encounter Procedures Procedure Name Priority Date/Time Associated Diagnosis Comments PAP/HPV Routine 11/09/2021 documented in this encounter Results * Pap Smear (11/09/2021) Pap smear NIL HPV+ us Historical Provider HEALTH MAINTENANCE Final Result documented in this encounter Visit Diagnoses Not on filedocumented in this encounter Care Teams Laboratory Operations Coordinator Relationship Specialty Start Date End Date Tiffany Amaro MD PCP - General Family Medicine 07/10/21 02/12/22 Asia Forte FNP [address] [place] [address] PCP - General Family Medicine 02/13/22 documented as of this encounter
--- OUTSIDE RECORDS SUMMARY | 2024-10-08 13:11 | XMS_ITS | Clinical Summary ---
Author Organization [facility] Address [address] [place] [phone] Phone Care Team Providers Care Rf Test Technician Name Role Phone Pcp, Unknown Primary Care [...] topic Medical Devices [place] [address] [facility] [place] [address] [facility] [place] [address] [facility] [address] [place] [address] [facility] [place] [address] [facility] [place] [address] [facility] Care Teams Rf Test Technician Relationship Specialty Start Date End Date Pcp, Unknown PCP - General 07/03/21 Additional Source Comments The information contained in this document represents components of the legal health record. It is not the complete legal health record.[facility]
[2024-10-08 13:18] VITALS: BP 106/62; PULSE 106; O2SAT 97; BMI 28.0
--- NOTE | 2024-10-08 13:18 | A.OFFVIS_ITS ---
Vital Signs 10/08/24 13:18 Height 5 ft 4 in Weight 163 lb BMI 28.0 BP 106/62 Blood Pressure Location Lt brachial Position Sitting Pulse 106 H Pulse Source Pulse Oximeter Pulse Oximetry (%) 97 Oxygen Delivery Method Room Air Intake Visit Reasons: copd Allergies No Known Allergies Allergy (Verified 10/06/24 13:30) HPI HPI copd: Details: 59-year-old lady, nonsmoker, from [facility], with underlying history of tuberculosis while in high school treated at that time, with reactivation approximately 20 years prior, treated for 6 months at that time, now followed for abnormal CT scan with bronchiectasis and ground-glass opacities, reactive airway disease, and environmental allergies. She can no longer afford Nucala and as continues on Symbicort and albuterol MDI/nebs with reasonable control of her asthma symptoms, however now with worsening allergic rhinitis. She tried to nasal ipratropium, however developed some nasal bleeds. Patient also had small volume hemoptysis several times since last visit, last approximately 4 weeks prior. [facility] Medical History (Updated 10/08/24 @ 13:45 by Alberto Aj MD) Tuberculosis COPD (chronic obstructive pulmonary disease) Asthma HTN (hypertension) Hx of breast cancer Invasive ductal carcinoma of breast Surgical History (Updated 08/26/24 @ 15:36 by FELICIA Green) Hx of eye surgery History of lumpectomy of right breast Social History (Updated 08/26/24 @ 15:37 by FELICIA Green) Household Members: Significant Other Alcohol intake: never Patient Tobacco Use Status: Never used Tobacco Current occupational status: unemployed Current occupation: right hand dominant Female Reproductive History Menstrual Age of Menarche: 18 Review of Systems Const Denies daytime sleepiness, Denies excessive sweating, Denies fatigue, Denies fever(s), Denies lethargy, Denies malaise, Denies night sweats, Denies snoring and Denies weight loss Eyes Denies blurry vision and Denies itchy eyes ENT Reports nasal congestion, Reports post nasal drip, Denies sinus pain, Denies sinus pressure and Denies other ( Thrush) Card Denies chest pain, Denies pedal edema, Denies dyspnea, Denies orthopnea and Denies paroxysmal nocturnal dyspnea Resp Denies cough, Reports hemoptysis, Denies excessive phlegm production, Denies dyspnea, Denies snoring and Denies wheezing GI Denies abdominal pain and Denies heartburn Musc Denies myalgias, Denies arthralgias and Denies joint swelling Skin/Breast Denies rash Neuro Denies memory loss and Denies seizure-like activity Psych Denies abnormal sleep pattern, Denies anxiety and Denies memory loss Endo Denies excessive sweating, Denies fatigue and Denies heat intolerance Chao/Lymph Denies easy bruising Aller/Immun Denies itchy eyes, Denies seasonal rhinorrhea and Denies wheezing Physical Exam Vital Signs: Last Vital Signs Pulse 106 H 10/08/24 13:18 BP 106/62 10/08/24 13:18 Pulse Ox 97 10/08/24 13:18 Oxygen Delivery Method Room Air 10/08/24 13:18 BMI result Body Mass Index 28.0 Const General: no acute distress and alert Nutritional Appearance: not obese Orientation/consciousness: Other orientation findings ( oriented) HEENT Head: Yes atraumatic Eyes General: appearance normal, both eyes and all related structures Sclerae: sclerae normal EOM: EOMs intact bilaterally Neck Neck: Yes supple Lymphatic: no lymphadenopathy noted Resp Effort & Inspection: normal respiratory effort and no use of accessory muscles Auscultation: clear to auscultation bilaterally Cardio Rate: regular rate Rhythm: regular rhythm Heart sounds: no gallops, no murmurs and no rubs Skin General skin exam: other ( warm) Extrem General: No clubbing, No cyanosis and No edema Assessment & Plan Assessment & Plan (1) Bronchiectasis: Code(s): J47.9 - Bronchiectasis, uncomplicated Category: Medical Plan: No recent exacerbation. Continue to monitor clinically. (2) Hemoptysis: Code(s): R04.2 - Hemoptysis Category: Medical Plan: Small volume, self-limited, last approximately 4 weeks prior. Likely secondary to underlying bronchiectasis. Will repeat CT chest. (3) Reactive airway disease: Code(s): J45.909 - Unspecified asthma, uncomplicated Category: Medical Plan: Reasonable control on Symbicort and albuterol MDI/nebs, though overall worsening after patient was no longer able to afford Nucala. (4) Chronic sinusitis: Code(s): J32.9 - Chronic sinusitis, unspecified Category: Medical Plan: Likely chronic allergic sinusitis previously controlled on Nucala, now no longer well controlled. Poor tolerance of nasal ipratropium secondary to nasal bleeds. Will try on azelastine. Will obtain CT of the sinuses. Coding Level of Care Code Est Pt Level 4 (73803) Complex EM visit Add On G2211 Diagnoses Bronchiectasis J47.9 Hemoptysis R04.2 Reactive airway disease J45.909 Chronic sinusitis J32.9
== END 2024-10-08 13:40 | disposition home or self-care (01) ==
LOC: HO.HPS 13:08
PROVIDERS: PCP Pediatrics; Visit Provider Internal Medicine Pulmonary Disease
DX: J47.9 Bronchiectasis, uncomplicated (principal); R04.2 Hemoptysis; J45.909 Unspecified asthma, uncomplicated; J32.9 Chronic sinusitis, unspecified
CPT/HCPCS: 99214; G2211

== ENCOUNTER → 2024-10-08 13:07 | Outpatient (BNVA) | payer OTHER, SELFPAY | PROVIDERS: PCP Pediatrics; Visit Provider Internal Medicine Pulmonary Disease | DX: J47.9 Bronchiectasis, uncomplicated (principal); J45.909 Unspecified asthma, uncomplicated; R04.2 Hemoptysis; J32.9 Chronic sinusitis, unspecified | CPT/HCPCS: 99212 ==

== ENCOUNTER 2024-10-16 12:46 | Outpatient (REF) | payer OTHER, SELFPAY ==
--- OUTSIDE RECORDS SUMMARY | 2023-06-28 07:40 | XMS_ITS ---
Author Organization [facility] Address [address] [place] [address] Care Team Providers Care Golf Cart Mechanic Name Role Phone CARLEY FELIZ, JASSON Primary Care Provider Richard Graham Jr REASON FOR VISIT screening Encounters Encounter Location Date Provider Diagnosis [facility] [place] [address] [place] [id number] 06/28/2023 Richard Rubio Jr Encounter for screening colonoscopy Z12.11 and Colon polyps K63.5 Assessments Encounter Date Diagnosis (ICD Code) Assessment Notes Treatment Notes Treatment Clinical Notes Section Notes 06/28/2023 Encounter for screening colonoscopy (ICD-10 - Z12.11) 06/28/2023 Colon polyps (ICD-10 - K63.5) Plan Of Treatment No Information Progress Notes * REBECCA OATESMITCHEDOB: [birth year] (59 yo F)Acc No.[id number]:06/28/2023 COLON WITH MAC Patient: KIAN LEIGH Provider: Denise Rubio MD :1965 A ge:58 Y S ex:Female Date:06/28/2023 Address:[address] [place], [place] [phone] Pcp:JASSON HOWE MD Subjective: * Chief Complaints: [...] 06/28/2023 Generated for Leia sandoval/Mojgan/Robertoitting on: 0 10/16/2024 12:48 PM EDT
--- OUTSIDE RECORDS SUMMARY | 2024-10-16 12:48 | XMS_ITS | Encounter Summary ---
Author Organization [employer] Address [address] [facility] [address] [place] [address] Care Team Providers Care Loan Officer Name Role Phone Tiffany Amaro MD Primary Care Provider Asia Parker Primary Care Provider [phone] Encounter Details Date Type Department Care Team (Late st Contact Info) Description 11/20/[address] [facility] MEDICINE [address] [place] [address] Provider, MD Felisa Social History Tobacco Use [...] Description 10/19/2024 2:30 PM EDT Office Visit [facility] CHC MED & PEDS [address] [place] [address] Asia Forte FNP [address] [place] [address] 12/14/2024 2:00 PM EDT Office Visit [facility] OPTOMETRY [address] [place] [address] Bayron, Sabrina, OD [address] [place] [address] documented as of this encounter Procedures Procedure Name Priority Date/Time Associated Diagnosis Comments PAP/HPV Routine 11/09/2021 documented in this encounter Results * Pap Smear (11/09/2021) Pap smear NIL HPV+ us Historical Provider HEALTH MAINTENANCE Final Result documented in this encounter Visit Diagnoses Not on filedocumented in this encounter Care Teams Loan Officer Relationship Specialty Start Date End Date Tiffany Amaro MD PCP - General Family Medicine 07/10/21 02/12/22 Asia Forte FNP [address] [place] [address] PCP - General Family Medicine 02/13/22 documented as of this encounter
--- OUTSIDE RECORDS SUMMARY | 2024-10-16 12:48 | XMS_ITS | Clinical Summary ---
Author Organization [facility] Address [address] [place] [address] Phone Care Team Providers Care Patient Safety Attendant Name Role Phone Pcp, Unknown Primary Care [...] topic Medical Devices [place] [address] [place] [address] [place] [address] [facility] [place] [address] [place] [address] [place] [address] [place] [address] [facility] Care Teams Patient Safety Attendant Relationship Specialty Start Date End Date Pcp, Unknown PCP - General 07/03/21 Additional Source Comments The information contained in this document represents components of the legal health record. It is not the complete legal health record.[facility]
--- NOTE | 2024-10-16 12:50 | EMG_ITS ---
Chief complaint: Continues to have numbness especially on 3rd to 5th digits History of breast cancer status post radiation and surgery Normal nerve conduction studies bilateral 2023. Reason for referral: Evaluate for ulnar neuropathy Referred by: Elvis BOCANEGRA Procedure done: Right upper extremity NCS/EMG Precautions and/or limitations: None The limb temperature was monitored continuously and remained between 32-36 degrees C during the performance of the NCS. Nerve Conduction Studies Anti Sensory Summary Table ?Stim Site NR Onset (ms) Norm Onset (ms) Peak (ms) Norm Peak (ms) O-P Amp (?V) Norm O-P Amp Site1 Site2 Delta-0 (ms) Dist (cm) Emeterio (m/s) Norm Emeterio (m/s) Right Median Anti Sensory (2nd Digit) Wrist ? 2.7 3.1 <3.6 22.5 >10 Wrist 2nd Digit 2.7 14.0 52 Right Ulnar Anti Sensory (5th Digit) Wrist ? 1.7 2.2 <3.7 23.6 >15.0 Wrist 5th Digit 1.7 14.0 82 Motor Summary Table ?Stim Site NR Onset (ms) Norm Onset (ms) O-P Amp (mV) Norm O-P Amp iAmp (mV) Amp (1st) (%) Site1 Site2 Delta-0 (ms) Dist (cm) Emeterio (m/s) Norm Emeterio (m/s) Run #3 (Abd Poll Brev) Wrist ? 3.9 <3.9 9.8 >4.5 11.6 100.0 Elbow Wrist 3.9 20.0 51 >45 Elbow ? 7.8 9.4 11.5 95.9 Right Ulnar Motor (Abd Dig Minimi) Wrist ? 2.3 <3.0 9.2 >5 10.6 100.0 B Elbow Wrist 4.0 19.0 48 >45 B Elbow ? 6.3 9.2 10.7 100.0 A Elbow B Elbow 1.4 10.0 71 >45 A Elbow ? 7.7 7.8 9.3 84.8 Comparison Summary Table ?Stim Site NR Peak (ms) Norm Peak (ms) P-T Amp (?V) Site1 Site2 Delta-P (ms) Norm Delta (ms) Right Median/Radial Dig I Comparison (Digit 1 - 10cm) Median ? 2.8 <2.9 50.5 Median Radial 0.2 Radial ? 3.0 <2.8 36.1 EMG ?Side Muscle Nerve Root Ins Act Fibs Psw Amp Dur Poly Recrt Int Pat Comment Right 1stDorInt Ulnar C8-T1 Nml Nml Nml Nml Nml 0 Nml Complete Right FlexCarRad Median C6-7 Nml Nml Nml Nml Nml 0 Nml Complete Right Biceps Musculocut C5-6 Nml Nml Nml Nml Nml 0 Nml Complete Right Triceps Radial C6-7-8 Nml Nml Nml Nml Nml 0 Nml Complete Right Deltoid Axillary C5-6 Nml Nml Nml Nml Nml 0 Nml Complete FINDINGS: All motor and sensory nerves tested showed normal latencies, amplitudes and conduction velocities. Concentric needle EMG was performed in selected muscles of the right upper extremity. Study did not reveal signs of electric abnormalities as shown in the table above. IMPRESSION: 1. This is a normal study. 2. There is no electrodiagnostic evidence for median neuropathy, ulnar neuropathy, brachial plexopathy, or cervical radiculopathy. Thank you for your kind referral. Marian Valle MD, LILLY Board Certified, [place] [employer] and Rehabilitation (ABPMR) Board Certified, [place] Board of Electrodiagnostic Medicine (ABEM) CODIN 19506 MTDD
== END 2024-10-16 12:47 | disposition home or self-care (01) ==
LOC: HO.NEURO 12:46
PROVIDERS: PCP Registered Nurse
DX: R20.0 Anesthesia of skin (principal); R20.2 Paresthesia of skin; Z85.3 Personal history of malignant neoplasm of breast; Z92.3 Personal history of irradiation
CPT/HCPCS: 95886; 95909

== ENCOUNTER → 2024-10-16 12:50 | Outpatient (BNV) | payer OTHER, SELFPAY | PROVIDERS: PCP Registered Nurse; Visit Provider Physical Medicine & Rehabilitation | DX: R20.2 Paresthesia of skin (principal) | CPT/HCPCS: 95886; 95909 ==

== ENCOUNTER 2024-11-24 14:49 | Outpatient (AMB) | payer OTHER, SELFPAY ==
--- OUTSIDE RECORDS SUMMARY | 2023-06-28 07:40 | XMS_ITS ---
Author Organization [facility] Address [address] [place] [address] Care Team Providers Care Eyeletter Name Role Phone CARLEY FELIZ, JASSON Primary Care Provider Richard Graham Jr REASON FOR VISIT screening Encounters Encounter Location Date Provider Diagnosis [facility] [place] [address] [place] [id number] 06/28/2023 Richard Rubio Jr Encounter for screening colonoscopy Z12.11 and Colon polyps K63.5 Assessments Encounter Date Diagnosis (ICD Code) Assessment Notes Treatment Notes Treatment Clinical Notes Section Notes 06/28/2023 Encounter for screening colonoscopy (ICD-10 - Z12.11) 06/28/2023 Colon polyps (ICD-10 - K63.5) Plan Of Treatment No Information Progress Notes * REBECCA OATESMICTHEDOB: [birth year] (59 yo F)Acc No.[id number]:06/28/2023 COLON WITH MAC Patient: KIAN LEIGH Provider: Denise Rubio MD :1965 A ge:58 Y S ex:Female Date:06/28/2023 Address:[address] [place], [place] [phone] Pcp:JASSON HOWE MD Subjective: * Chief Complaints: [...] 06/28/2023 Generated for Leia sandoval/Mojgan/Robertoitting on: 0 11/24/2024 05:56 PM EDT
[2024-11-24 15:22] VITALS: BMI 28.0
--- NOTE | 2024-11-24 15:22 | A.OFFVIS_ITS ---
Vital Signs 11/24/24 15:22 Height 5 ft 4 in Weight 163 lb BMI 28.0 Intake Visit Reasons: OV: Left Middle Trigger Finger Intake Note: Alva is a 59 year old right hand dominant female who presents today for follow up of her Left Middle Trigger Finger. She was evaluated and injected on 10/06/24. Patient states the injection helped for about a month. She wishes to discuss other options as she is not intereted on an injection today. Allergies No Known Allergies Allergy (Verified 11/24/24 15:23) HPI HPI OV: Left Middle Trigger Finger: Details: Alva is a 59 year old right hand dominant female who presents today for follow up of her Left Middle Trigger Finger. She was evaluated and injected on 10/06/24. Patient states the injection helped for about a month. She wishes to discuss other options as she is not intereted on an injection today. [facility] Medical History (Updated 10/08/24 @ 13:45 by Alberto Aj MD) Tuberculosis COPD (chronic obstructive pulmonary disease) Asthma HTN (hypertension) Hx of breast cancer Invasive ductal carcinoma of breast Surgical History (Updated 08/26/24 @ 15:36 by FELICIA Green) Hx of eye surgery History of lumpectomy of right breast Social History (Updated 08/26/24 @ 15:37 by FELICIA Green) Household Members: Significant Other Alcohol intake: never Patient Tobacco Use Status: Never used Tobacco Current occupational status: unemployed Current occupation: right hand dominant Female Reproductive History Menstrual Age of Menarche: 18 Physical Exam Vital Signs: BMI result Body Mass Index 28.0 Extrem Other: Patient is alert, oriented, and in no acute distress. Neuro: Normal sensation of the tips of all digits of the bilateral hand at this time Vascular: Cap refill brisk Pain: Tenderness to palpation of the A1 anastasiia of the left middle finger Pain associated with locking catching of the left middle finger ROM: Patient is able to make a closed fist and extend all digits of the left hand fully, but there is visible and palpable locking and catching of the left middle finger Skin: No lacerations or abrasions. General: No ecchymosis, erythema, or evidence of infection. Psych: Appears grossly normal Affect normal Attitude cooperative Assessment & Plan Assessment & Plan (1) Trigger finger, left middle finger: Code(s): M65.332 - Trigger finger, left middle finger Category: Medical Plan 1. Trigger finger, left middle finger Patient is educated about this condition Patient is educated about the treatment options available Patient is uninterested in repeat injection at this time Patient is educated on the surgical and recovery course for a trigger release, but states she would need to take some time to discuss with family and friends in order to get signed up for surgery Patient should call our office when she is ready to discuss surgical intervention Patient understands this is amenable to this plan Follow-up as needed Coding Level of Care Code Est Pt Level 3 (36109) Diagnoses Trigger finger, left middle finger M65.332
--- OUTSIDE RECORDS SUMMARY | 2024-11-24 17:56 | XMS_ITS | Patient Health Record ---
Author Organization [facility] Address [address] [place] [address] Care Team Providers Care Rail Car Unloader Name Role Phone CARLEY FELIZ, JASSON Primary Care Provider Richard Graham Jr Unavailable Allergies No Known Allergies Reason For Referral No Information Medications Medication SIG (Take, Route, Frequency, Duration) Notes Start Date End Date Status Symbicort 160-4.5 MCG/ACT INHALE 2 PUFFS BY MOUTH TWICE DAILY IN THE MORNING AND IN THE EVENING RINSE MOUTH AFTER USING. Inhalation for 90 J449,Unavailabl e Active Cetirizine HCl 10 MG TAKE 1 TABLET [...] the procedure for 1 day 05/22/2023 Active Albuterol Sulfate (2.5 MG/3ML) 0.083% INHALE 1 AMPULE USING A NEBULIZER EVERY 4 HOURS NEEDED SHORTNESS OF BREATH FOR WHEEZING Inhalation for 9 Active Ventolin HFA 108 (90 Base) MCG/ACT INHALE 2 PUFFS BY MOUTH EVERY 4 HOURS NEEDED FOR WHEEZING OR SHORTNESS OF BREATH Inhalation for 17 J449,Unavailabl e Active Lisinopril 20 MG TAKE 1 TABLET BY GONZALO TH EVERY DAY IN THE MORNING Oral for 90 Active Immunizations Vaccine Route Administration Date Status Comme nts Influenza Unknown 12/25/2022 Administered Social History Tobacco Use: Social History Observation [...] Problem Status W/U Status Risk Notes Problem 580421552 Colon cancer screening (Z12.11) Active confirmed Problem 296894083 Encounter for other preprocedural examination (Z01.818) Active confirmed Plan Of Treatment Future Test Test Name Order Date COLONOSCOPY 05/22/2023 Insurance Providers Payer Name Payer Address Payer Phone Subscriber Number Group Number Insured Name Patient Relationship to Insured Coverage Start Date Coverage End Date [facility] [address] [address] [place] [address] [id number] KIAN OATES Self - patient is the insured [facility] [address] [address] [place] [address] [id number] KIAN OATES Self - patient is the insured Medical (General) History Medical History History ICD Code Hypertension Asthma/COPD, history of TB, treated Breast cancer right lumpectomy, radiatio n therapy Surgical History Surgery Date(Month/Year) Right lumpectomy 08/23
--- OUTSIDE RECORDS SUMMARY | 2024-11-24 17:56 | XMS_ITS | Encounter Summary ---
Author Organization [facility] Address [address] [place] [address] Care Team Providers Care Retail Pos Specialist Name Role Phone Asia Forte EXPERIMENTAL WELDER Primary Care Provider [phone] Encounter Details Date Type Department Care Team ([facility] st Contact Info) Description 07/01/2024 Orders Only [facility] [address] [place], [place] [id number] Jenn Ramírez Social History Tobacco Use Types Packs/Day Years [...] Care Team (Late st Contact Info) Description 12/11/2024 10:15 AM EDT Office Visit [facility] [address] [place] [address] Phalen, Asia, EXPERIMENTAL WELDER [address] [place] [address] 12/14/2024 2:00 PM EDT Office Visit [facility] OPTOMETRY [address] [place] [address] Bayron, Sabrina, OD [address] [place] [address] documented as of this encounter Procedures Procedure Name Priority Date/Time Associated Diagnosis Comments BI MAMMOGRAM DIAGNOSTIC TOMOSYNTHESIS BILATERAL Routine 07/30/2024 2:05 PM EDT HPV MRNA E6/E7 REFLEX TO HPV 16, 18/45 Routine 03/11/2024 12:00 AM EST documented in this encounter Results * BI Mammogram Diagnostic Tomosynthesis Bilateral (07/30/2024 2:05 PM EDT) Anatomical Region Laterality Modality Breast Bilateral Mammography 07/30/2024 2:05 PM EDT Narrative 07/30/2024 2:46 PM EDT [facility] [address] [place] [address] Mammography Report Signed Patient: Alva Mann MR#: [id number] : 1965 Acct:[id number] Age/Sex: 59 / F ADM Date: 07/30/24 Loc: HO.MAMMO Attending Dr: Yvan Calvert MD Ordering Physician: Yvan Calvert MD Results: 2Ben ign Findings Date of Service: 07/30/24 Follow Up: 1 Year From [facility] ina Mammogram Procedure(s): MM tomosynthesis diagnostic BI Accession Number(s): [id number] cc: Krystyna Uriostegui MD; Yvan Calvert MD EXAMINATION: MM DIAGNOSTIC DIGITAL BREAST TOMOSYNTHESIS, BILATERAL CLINICAL INFORMATION: History of right breast cancer in 2021 status post lumpectomy. Yearly screening surveillance. COMPARISON: Mammography: Comparison is made with relevant prior exams. TECHNIQUE: Digital breast mammography with tomosynthesis is performed in both the craniocaudal and mediolateral oblique views along with computer-aided detection (CAD). FINDINGS: There are scattered areas of fibroglandular density (ACR BI-RADS breast composition Category b). Right lumpectomy changes are stable. There are no significant masses, abnormal calcifications, or other abnormalities. Results are provided to the patient at time of visit by the technologist. MM/MM tomosynthesis diagnostic BI IMPRESSION: There are no significant changes from prior study. ASSESSMENT: BI-RADS BI-RADS 2 - Benign Findings RECOMMENDATION: 1 year F/U This patient's information was entered into a reminder system with a target due date for their next mammogram. Electronically signed by: Barbra Nuñez DO 07/30/2024 02:44 PM EDT Dictated By: Barbra Nuñez DO Signed By: <Electronically signed by Barbra Nuñez DO in OV> 07/30/24 1444 DD/ 1405 TD/TT: 07/30/24 1425 Production Repairer: Procedure Note Donotuseinterpreter, Image - 07/30/2024 [facility] [address] [place] [address] Mammography Report Signed Patient: Vivek Mann#: [id number] : 1965Acct:[id number] Age/Sex: 59 / FADM Date: 07/30/24 Loc: HO.MAMMO Attending Dr: Yvan Calvert MD Ordering Physician: Yvan Calvert MDResults: 2Ben ign Findings Date of Service: 07/30/24Follow Up: 1 Year From Orig ina Mammogram Procedure(s): MM tomosynthesis diagnostic BI Accession Number(s): [id number] cc: Krystyna Uriostegui MD; Yvan Calvert MD EXAMINATION: MM DIAGNOSTIC DIGITAL BREAST TOMOSYNTHESIS, BILATERAL CLINICAL INFORMATION: History of right breast cancer in 2021 status post lumpectomy. Yearly screening surveillance. COMPARISON: Mammography: Comparison is made with relevant prior exams. TECHNIQUE: Digital breast mammography with tomosynthesis is performed in both the craniocaudal and mediolateral oblique views along with computer-aided detection (CAD). FINDINGS: There are scattered areas of fibroglandular density (ACR BI-RADS breast composition Category b). Right lumpectomy changes are stable. There are no significant masses, abnormal calcifications, or other abnormalities. Results are provided to the patient at time of visit by the technologist. MM/MM tomosynthesis diagnostic BI IMPRESSION: There are no significant changes from prior study. ASSESSMENT: BI-RADS BI-RADS 2 - Benign Findings RECOMMENDATION: 1 year F/U This patient's information was entered into a reminder system with a target due date for their next mammogram. Electronically signed by: Barbra Nuñez DO 07/30/2024 02:44 PM EDT Dictated By: Barbra Nuñez DO Signed By: <Electronically signed by Barbra Nuñez DO in OV> 07/30/24 1444 DD/ 1405 TD/TT: 07/30/24 1425 Production Repairer: [facility] External Provider IMG BI PROCEDURES Final Result * (ABNORMAL) HPV mRNA E6/E7 w/Reflex to HPV Genotypes 16, 18/45 (03/11/2024 12:00 AM EST) us Historical Provider LAB CYTOLOGY ORDERABLES F inal Result documented in this encounter Visit Diagnoses Not on filedocumented in this encounter Additional Health Concerns Assessment Noted Time PHQ-9 Depression Total Score: 0 12/04/19 24 10:14 AM EDT documented as of this encounter Care Teams Retail Pos Specialist Relationship Specialty Start Date End Date Asia Forte FNP [address] [place] [id number] PCP - General Family Medicine 02/13/22 documented as of this encounter
--- OUTSIDE RECORDS SUMMARY | 2024-11-24 17:56 | XMS_ITS | Clinical Summary ---
Author Organization [employer] Address [address] [facility] 7[address] [place] [address] Care Team Providers Care Airdox Fitter Name Role Phone Raymondbg Asia DALTON Primary Care Provider [phone] Allergies No known active allergies Medications ibuprofen 600 MG tablet Take 1 tablet by mouth every 6 (six) hours if needed. 2 Active Acetaminophen Extra Strength 500 MG tablet TAKE 2 TABLETS BY MOUTH 4 TIMES A DAY NEEDED FOR PAIN 2 Active fluticasone (Flonase) 50 MCG/ACT nasal sprayIndications: Seasonal allergies Administer 2 sprays into each nostril in the morning. 16 g 3 3 Active anastrozole (Arimidex) 1 MG chemo tablet Take 1 mg by mouth Once per day. 4 Active Symbicort 160-4.5 MCG/ACT inhalerIndication s:Chronic obstructive pulmonary disease, unspecified COPD type (CMS/HCC) INHALE 2 PUFFS BY MOUTH TWICE DAILY IN THE MORNING AND IN THE EVENING RINSE MOUTH AFTER USING. 3 each 3 5 Active lisinopril 30 MG tabletIndications :Primary hypertension TAKE 1 TABLET BY MOUTH EVERY DAY 90 tablet 1 5 Active Diclofenac Sodium 1 % gelIndications:Tr igger middle finger of left hand To apply to the affected area 3 times a day 100 g 5 Active albuterol (Ventolin HFA) 108 (90 Base) MCG/ACT inhalerIndication s:Chronic obstructive pulmonary disease, unspecified COPD type (CMS/HCC) INHALE 2 PUFFS BY MOUTH EVERY 4 HOURS NEEDED FOR WHEEZING OR SHORTNESS OF BREATH 18 g 11 5 Active fexofenadine (Rhiannon) 180 MG tablet TAKE 1 TABLET BY MOUTH EVERY DAY NEEDED FOR ALLERGIES OR FOR NASAL CONGESTION 90 tablet 1 5 Active Active Problems Problem Noted Date Diagnosed Date Hyperlipidemia LDL goal <100 06/26/2023 Overview (06/28/2023): Lab Results Component Value Date CHOL 250 (H) 05/17/2023 TRIG 113 05/17/2023 HDL 73 05/17/2023 LDLCHOLCAL 155 (H) 05/17/2023 - ASCVD 3.6%, PCE '18 (2.4%). Statin not indicated at this time. - Cont lifestyle modifications History of tuberculosis 12/26/2022 Overview (12/26/2022): History of Tuberculosis in the [facility]. 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 Reactivation approx 20 years later, received tx. Following with [facility] Pulm Assessment & Plan (06/28/2023 7:48 AM [...] hx of breast CA, currently following with [facility] breast clinic Colonoscopy: 06/28/23 (Dr. Rubio), hyperplastic polyp. Repeat in 10 years. Optometry: [facility] , [facility] for cataracts Malignant neoplasm of female breast 03/09/2022 Overview (02/16/2023): -Diagnosed July 2021, s/p biopsy which revealed invasive ductal carcinoma grade 2 of the right breast -Estrogen and progesterone receptor positive -Followed by [facility] - s/p surgery and radiation -Continues on tamoxifen 20mg daily -Transferred to to [facility] ([facility]) Plan: Next Mammo July 2023 Cont Tamoxifen 20mg daily (end Jan 2024), then switch to anastrozole Follow up 6 months Assessment & Plan (03/10/2022 2:14 PM EST): -Diagnosed July 2021, s/p biopsy which revealed invasive ductal carcinoma grade 2 of the right breast -Estrogen and progesterone receptor positive -Followed by [facility] - s/p surgery and radiation -Continues on tamoxifen 20mg daily Seasonal allergies 03/09/2022 Assessment & Plan (03/10/2022 2:22 PM EST): -Continue with cetirizine 10mg daily -Continue with flonase PRN Chronic obstructive lung disease 12/18/2021 Overview (06/28/2023): -Following with [facility] Pulm (Dr. Aj) -Med regimen through Pulm: [...] -Continue with albuterol PRN -Continue following with [facility] Pul Plan to re-start Nucala injections Mar 2023 (waiting for insurance auth) Assessment & Plan (01/17/2023 8:08 PM EST): -Continue with symbicort 2 puffs BID -Continue with albuterol PRN -Continue following with [facility] Pul Assessment & Plan (03/10/2022 2:21 PM EST): -Continue with symbicort 2 puffs BID -Continue with albuterol PRN -Continue following with [facility] Pul, pt will reach out if interested in referral to another location Resolved Problems Problem Noted Date Diagnosed Date Resolved Date Colon cancer screening 12/04/202304/09 Encounter for other preprocedural examination 12/04/19 24 04/09/2024 Mild persistent asthma without complication 03/09/2022 03/10/2022 Urinary tract infection symptoms 03/09/2022 03/10/2022 Encounters Date Type Department Care Team Description 10/16/2024 Telephone [facility] CH[facility] MED & PEDS [address] [place], [place] [phone] Asia Forte FNP chart prep 10/12/2024 Travel 10/01/2024 Refill [facility] MEDICINE [address] [place] [address] Asia Forte FNP from Last 3 Months Immunizations Immunization Administration Dates Next Due Hep B, adult [...] Average Number of Drinks Not on file Frequency of Binge Drinking Not on file [...] 78 06/25/2024 9:46 AM EDT Temperature 36.4 C (97.6 F) 06/25/2024 9:46 AM EDT Respiratory Rate 20 06/25/2024 9:46 AM EDT Oxygen Saturation 98% 06/25/2024 9:46 AM EDT Inhaled Oxygen Concentration - - Weight 73.6 kg (162 lb 3.2 oz) 06/25/2024 9:46 A M EDT Height 160 cm (5' 3 ) 06/25/2024 9:46 AM EDT Body Mass Index 28.73 06/25/2024 9:46 AM EDT Plan of Treatment Upcoming Encounters Date Type Department Care Team (Late st Contact Info) Description 12/11/2024 10:15 AM EDT Office Visit [facility] CH[facility] MED & PEDS [address] [place] [address] RaymondensAia, SHELL PRESS OPERATOR [address] [place] [address] 12/14/2024 2:00 PM EDT Office Visit [facility] OPTOMETRY [address] [place] [address] Bayron, Sabrina, OD [address] [place] [address] Health Maintenance Due Date Last Done Comments CT Colonography 1965 FIT DNA/Cologuard 1965 FIT 1965 FOBT 1965 Sigmoidoscopy 1965 Pneumococcal Vaccine: 50+ Years (1 of 2 - PCV) 05/01/1986 Influenza Vaccine (#1) 2024 , 12/25/2022, 12/24/2022, Additional history exists Depression Screening 12/03/2024 12/04/2023, 12/04/19 Cervical Cancer Screening 03/11/2025 HPV/Cotest 03/11/2025 03/11/2024, 01/03, 11/09/2021, Additional history exists Pap Smear 03/11/2025 03/11/2024, 01/03, 11/09/2021, Additional history exists Disability Screening 04/03/2025 04/03/2024 Alcohol/Substance Use Screening 04/08/2025 04/08/2024 SDOH Screening 04/08/2025 04/08/2024 Tobacco Screening 06/25/2025 06/25/2024 Mammogram 07/30/2025 07/30/2024, 08/03, 08/16/2021, Additional history exists Lipid Panel 05/16/2028 05/17/2023, 07/11/2021 DTaP/Tdap/Td Vaccines (3 - Td or Tdap) 08/13/2032 08/13/2022, 10/10/2021 Colonoscopy 06/27/2033 06/28/2023, 06/28/2023 Colorectal Cancer Screening 06/27/2033 RSV Patients and Patients Aged 60 years or older (1 - 1-dose 75+ series) 05/01/2042 HIV Screening Completed 07/11/2021 Hepatitis C Screening Completed 07/11/2021 Hepatitis B Vaccines Completed 11/06/2022, 08/13/2022, 03/17/2022 Zoster Vaccines Completed 11/06/2022, 08/13/2022 COVID-19 Vaccine Completed 12/30/2023, , 12/13/2021, Additional history exists HIB Vaccines Aged Out [...] patient's age to complete this topic Meningococcal B Vaccine Aged Out No l onger eligible based on patient's age to complete [...] 16, 18/45 Routine 03/11/2024 12:00 AM EST PAP SMEAR Routine 03/11/2024 12:00 AM EST Cervical cancer screening HM COLONOSCOPY Routine 06/28/2023 1:24 PM EDT LIPID PANEL, STANDARD Routine 05/17/2023 10:26 AM EDT Primary hypertension ZZZ HISTORICAL HEPATITIS C AB W/REFL TO HCV RNA, QN, PCR Routine 07/11/2021 9:00 AM EDT HIV 1/2 ANTIGEN/ANTIBODY, FOURTH GENERATION W/RFL Routine 07/11/2021 9:00 AM EDT from Last 3 Months or Most Recently Relevant to Health Maintenance Results * BI Mammogram Diagnostic Tomosynthesis Bilateral (07/30/2024 2:05 PM EDT) Anatomical Region Laterality Modality Breast Bilateral Mammography 07/30/2024 2:05 PM EDT Narrative 07/30/2024 2:46 PM EDT Javier [facility] [address] [place] [address] Mammography Report Signed Patient: Alva Mann MR#: [id number] : 1965 Acct:[id number] Age/Sex: 59 / F ADM Date: 07/30/24 Loc: HO.MAMMO Attending Dr: Yvan Calvert MD Ordering Physician: Yvan Calvert MD Results: 2Ben ign Findings Date of Service: 07/30/24 Follow Up: 1 Year From [facility] Mammogram Procedure(s): MM tomosynthesis diagnostic BI Accession Number(s): [id number] cc: Krystyna Uriostegui MD; Yvan Cavlert MD EXAMINATION: MM DIAGNOSTIC DIGITAL BREAST TOMOSYNTHESIS, [...] 07/30/24 1444 DD/ 1405 TD/TT: 07/30/24 1425 [place] Operator: Procedure Note Donotuseinterpreter, Image - [facility] [address] [place], [place] [address] Mammography Report Signed Patient: Vivek Mann#: [id number] : 1965Acct:[id number] Age/Sex: 59 / FADM Date: 07/30/24 Loc: HO.MAMMO Attending Dr: Yvan Calvert MD Ordering Physician: Yvan Calvert MDResults: 2Ben ign Findings Date of Service: 07/30/24Follow Up: 1 Year From Orig inal Mammogram Procedure(s): MM tomosynthesis diagnostic BI Accession Number(s): [id number] cc: Krystyna Uriostegui MD; Yvan Calvert MD [...] 07/30/24 1444 DD/ 1405 TD/TT: 07/30/24 1425 [place] Operator: [facility] External Provider IMG BI PROCEDURES Final Result * (ABNORMAL) HPV mRNA E6/E7 w/Reflex to HPV Genotypes 16, 18/45 (03/11/2024 12:00 AM EST) Historical Provider LAB CYTOLOGY ORDERABLES F inal Result * Pap Smear (03/11/2024 12:00 AM EST) Swab Cervix uteri structure / Unknown 03/11/2024 03/12/2024 7:40 AM EST Narrative [facility] - 03/18/2024 3:18 PM EST ----- ------- Name: Alva Mann Age/Sex: 58/F : 1965 Unit#: [id number] Attend Dr: MAYKEL WALTER CNM Re03/11/24 Status: [facility] ----- ------- SPEC : [id number] RECD: 03/12/24 STATUS: ASPEN RENTERIAJessica NUM: [id number] DHAVAL: 03/11/24-[address]: MAYKEL WALTER CNM ENTERED: 03/12/24 SP TYPE: Pap Smr OTHR DR: ORDERED: Pap Smear, PAP path review Interpretation General Category: Epithelial cell abnormality. Adequacy: Endocervical component present. Interpretation: Atypical squamous cells of undetermined significance. Atrophy and inflammation. HPV High Risk: Positive HPV Genotyping 16: Negative HPV Genotyping 18: Negative Clinical Information LMP: Postmenopausal Previous PAP test: 2022, negative Other surgery: Positive HPV 2021 Other history: Material Received ThinPrep ----- ------- Signed (signature on file) Cody Milton MD 03/18/24 1518 ----- ------- END OF REPORT Maykel Walter [facility] LAB CYTOLOGY ORDERABLES F inal Result [facility] [address] [place] [phone] * Hm Colonoscopy (06/28/2023 1:24 PM EDT) Pathologist [facility] Colonoscopy Normal Normal Richard Rubio MD HEALTH MAINTENANCE Final Res ult * (ABNORMAL) Lipid Panel, Standard (05/17/2023 10:26 AM EDT) [facility] Triglycerides 113 <150 mg/dL [facility] Comment:Desirable Triglyceri de: less than 150 mg/dLBorderline High Triglyceride 150-199 mg/dLHigh Triglyceride: 200-499 mg/dLVery High Triglyceride: greater than or equal to 5OO mg/dL Cholesterol 250(H) <200 mg/dL [facility] Comment:Desirable Cholestero l: less than 200 mg/dLBorderline High Cholesterol: 200-239 mg/dLHigh Cholesterol: greater than 239 mg/dL LDL Cholesterol Calculated 155(H) <100 mg/dL [facility] Comment:Desirable LDL: less than 100 mg/dLNear Optimal/Above Optimal LDL: 110- 129 mg/dLBorderline High LDL: 130-159 mg/dLHigh LDL: 160-189 mg/dLVery High LDL: greater than or equal to 190 mg/dL HDL Cholesterol 73 >40 mg/dL [facility] Comment:Desirable HDL: great er than 40 mg/dL Note: This HDL assay may give artificially low results in patients with liver disease. Blood Venous blood specimen / Unknown 05/17/2023 10:26 AM EDT 05/17/2023 10:26 AM EDT us Jess Sanchez MD LAB BLOOD ORDERABLES Final Re sult Performing Organization Address City/[facility]/ZIP Co de Phone Number [facility] [address] [place] [address] [phone] * HEPATITIS C AB W/REFL TO HCV RNA, QN, PCR (07/11/2021 9:00 AM EDT) HEPATITIS C ANTIBODY NON-REACT LIZZ NON-REACT LIZZ [facility] INDEX 0.07 <1.00 [facility] Comment: HCV antibody was non-reactive. There is no laboratory evidence of HCV infection. In most cases, no further action is required. However, if recent HCV exposure is suspected, a test for HCV RNA (test code 39285) is suggested. For additional information please refer to http://education.[employer]/faq/ITP40d1 (This link is being provided for informational/ educational purposes only.) 07/11/2021 9:00 AM EDT us Tiffany Amaro MD HISTORICAL/NON ORDERABLE LAB S Final Result Performing Organization Address City/[facility] Co de Phone Number [facility] [address] * HIV 1/2 ANTIGEN/ANTIBODY,FOURTH GENERATION W/RFL (07/11/2021 9:00 AM EDT) HIV-1/2 ANTIGEN AND ANTIBODIES, 4TH GENERATION W/ REFLEX NON-REACT LIZZ NON-REACT LIZZ [facility] Comment: HIV-1 antigen and HIV-1/HIV-2 antibodies were not detected. There is no laboratory evidence of HIV infection. PLEASE NOTE: This information has been disclosed to you from records whose confidentiality may be protected by state law. If your state requires such protection, then the state law prohibits you from making any further disclosure of the information without the specific written consent of the person to whom it pertains, or as otherwise permitted by law. A general authorization for the release of medical or other information is NOT sufficient for this purpose. For additional information please refer to http://[employer]/faq/RFD920 (This link is being provided for informational/ educational purposes only.) The performance of this assay has not been clinically validated in patients less than 2 years old. 07/11/2021 9:00 AM EDT Tiffany Amaro MD LAB BLOOD ORDERABLES Final R esult Performing Organization Address City/State/[facility] Co nh Phone Number [facility] [address] from Last 3 Months or Most Recently Relevant to Health Maintenance Insurance [facility] F[facility] Care Teams Airdox Fitter Relationship Specialty Start Date End Date Asia Forte FNP [address] [place] [address] PCP - General Family Medicine 02/13/22
--- OUTSIDE RECORDS SUMMARY | 2024-11-24 17:56 | XMS_ITS | Clinical Summary ---
Author Organization [facility] Address [address] [place] [phone] Phone Care Team Providers Care Film Laboratory Technician Name Role Phone Pcp, Unknown Primary [...] 08/17/2023 08/16/2021, 07/02, 07/20/2021, Additional history exists INFLUENZA VACCINE (#1) 2024 02/12/2022 COVID-19 VACCINE (2 - 2024- season) 2024 02/06/2021 Adult Td,Tdap Booster 10/11/2031 10/10/2021 HEPATITIS [...] topic Medical Devices [place] [address] [facility] [place] [address] [facility] [place] [address] [place] [address] [facility] [place] [address] [place] [address] [facility] [place] [address] [facility] Care Teams Film Laboratory Technician Relationship Specialty Start Date End Date Pcp, Unknown PCP - General 07/03/21 Additional Source Comments The information contained in this document represents components of the legal health record. It is not the complete legal health record.[facility]
--- OUTSIDE RECORDS SUMMARY | 2024-11-24 17:56 | XMS_ITS | Encounter Summary ---
Author Organization [employer] Address [address] [facility] 7 [place] [address] Care Team Providers Care Spinning Frame Changer Name Role Phone Tiffany Amaro MD Primary Care Provider Asia Parker Primary Care Provider [phone] Encounter Details Date Type Department Care Team (Late st Contact Info) Description 11/20/2021 Abstract [facility] [address] [place] [address] Provider, MD Felisa Social History Tobacco Use [...] 10:15 AM EDT Office Visit [facility] [address] [place] [address] Asia Forte FNP [address] [place] [address] 12/14/2024 2:00 PM EDT Office Visit [facility] [address] [place] [address] Byaron, Sabrina, OD [address] [place] [address] documented as of this encounter Procedures Procedure Name Priority Date/Time Associated Diagnosis Comments PAP/HPV Routine 11/09/2021 documented in this encounter Results * Pap Smear (11/09/2021) Pap smear NIL HPV+ us Historical Provider HEALTH MAINTENANCE Final Result documented in this encounter Visit Diagnoses Not on filedocumented in this encounter Care Teams Spinning Frame Changer Relationship Specialty Start Date End Date Tiffany Amaro MD PCP - General Family Medicine 07/10/21 02/12/22 Asia Forte FNP [address] [place] [phone] PCP - General Family Medicine 02/13/22 documented as of this encounter
== END 2024-11-24 16:08 | disposition home or self-care (01) ==
PROVIDERS: PCP Registered Nurse
DX: M65.332 Trigger finger, left middle finger (principal)
CPT/HCPCS: 99213

== ENCOUNTER → 2024-11-24 14:49 | Outpatient (BNVA) | payer OTHER, SELFPAY | PROVIDERS: PCP Registered Nurse | DX: M65.332 Trigger finger, left middle finger (principal) | CPT/HCPCS: 99212 ==